=== PATIENT | female | born 1995 | race African-American/Black ===

== ENCOUNTER 2016-06-08 12:21 | Emergency (ER) | payer SELFPAY ==
[2016-06-08 12:26] VITALS: BP 115/76
--- NOTE | 2016-06-08 12:47 | ER Document Report ---
ED Medical Screen (RME) - General Stated Complaint: LEG PAIN AND SWELLING Time seen by provider: 12:45 Mode of Arrival: Ambulatory Information source: Patient Notes: 20-year-old female complaining of intermittent right distal lateral thigh rash to get red hot swollen for for 6 months. I have greeted and performed a rapid initial assessment of this patient. A comprehensive ED assessment, evaluation of the patient, analysis of test results , and completion of the medical decision making process will be conducted by additional ED providers. TRAVEL OUTSIDE OF THE [place] IN LAST 30 DAYS: No - Related Data Allergies/Adverse Reactions: Coconut * [Coconut] Allergy (Verified 06/08/16 12:44) No Known Drug Allergies Allergy (Verified 06/08/16 12:44) Past Medical History Psychiatric Medical History: Reports: Hx Anxiety - Immunizations Immunizations up to date: Yes Hx Diphtheria, Pertussis, Tetanus Vaccination: Yes Physical Exam - Vital signs Vitals: Temp Pulse Resp BP Pulse Ox 97.9 F 74 14 115/76 100 06/08/16 12:25 06/08/16 12:25 06/08/16 12:25 06/08/16 12:25 06/08/16 12:25 Course - Vital Signs Vital signs: Temp Pulse Resp BP Pulse Ox 97.9 F 74 14 115/76 100 06/08/16 12:25 06/08/16 12:25 06/08/16 12:25 06/08/16 12:25 06/08/16 12:25
--- NOTE | 2016-06-08 14:14 | ER Document Report ---
ED General - General Chief Complaint: Rash Stated Complaint: LEG PAIN AND SWELLING Time seen by provider: 14:09 Mode of Arrival: Ambulatory Information source: Patient Notes: 20-year-old female who reports one-week history of pain redness and swelling the lateral right thigh. Patient says she first had this presentation in this area about 7 months ago and it lasted for about 2 weeks. She scratched it and had some serous bloody or purulent drainage in it resolved and then recurred about 2 months later. She reports this is the fourth episode she's had all of which presented similarly. She does not think she's been bitten by anything. She denies any's foods soaps or shampoos detergents. She denies any injury to the area. She has no similar rashes elsewhere. She denies any IV drug use says she's not been injecting her skin in the area. He reports recently having had the flu but has otherwise been in normal state of health recently. Physical Exam: General: Alert, appears well. HEENT: Normocephalic. Atraumatic. PERRLA. Extraocular movements intact. Oropharynx clear. Neck: Supple. Non-tender. Respiratory: No respiratory distress. Clear and equal breath sounds bilaterally. Cardiovascular: Regular rate and rhythm. Abdominal: Normal Inspection. Soft, non-tender. No distension. Normal Bowel Sounds. Back: Non-tender. No deformity or step off. Extremities: Moves all four extremities. Upper extremities: Normal inspection. Non-tender. Normal color. Normal ROM. Normal temperature. Lower extremities: Normal inspection. Non-tender. No edema. Normal color. Normal ROM. Normal temperature. Neurological: Cranial nerves II-XII grossly intact bilaterally. Strength 5/5 throughout. Sensation intact to light touch. Normal cognition. AAOx4. Normal speech. Psychological: Normal affect. Normal Mood. Skin: Warm. Dry. Normal color. Patient has an irregular 2 x 4 cm area of darkish discoloration to the lower third of the right thigh laterally. The posterior portion of this is mildly indurated and tender to palpation with some superficial excoriations. There is no bleeding or purulence crepitance fluctuance or discharge. I do not palpate any deeper mass. She has no Homans sign bilaterally. TRAVEL OUTSIDE OF THE [place] IN LAST 30 DAYS: No - Related Data Allergies/Adverse Reactions: Coconut * [Coconut] Allergy (Verified 06/08/16 12:44) No Known Drug Allergies Allergy (Verified 06/08/16 12:44) Past Medical History - General Information source: Patient - Social History Smoking Status: Never Smoker Chew tobacco use (# tins/day): No Family History: DM, Hypertension Patient has suicidal ideation: No Patient has homicidal ideation: No - Past Medical History Cardiac Medical History: Reports: None Renal/ Medical History: Denies: Hx Peritoneal Dialysis Psychiatric Medical History: Reports: Hx Anxiety - Immunizations Immunizations up to date: Yes Hx Diphtheria, Pertussis, Tetanus Vaccination: Yes Review of Systems - Review of Systems Constitutional: denies: Chills, Fever EENT: denies: Ear pain, Throat pain Cardiovascular: denies: Chest pain Respiratory: denies: Cough, Short of breath Gastrointestinal: denies: Abdominal pain, Nausea, Vomiting Genitourinary: denies: Burning, Dysuria Female Genitourinary: denies: Musculoskeletal: denies: Back pain Skin: See HPI Hematologic/Lymphatic: denies: Swollen glands Neurological/Psychological: denies: Weakness, Numbness Physical Exam - Vital signs Vitals: Temp Pulse Resp BP Pulse Ox 97.9 F 74 14 115/76 100 06/08/16 12:25 06/08/16 12:25 06/08/16 12:25 06/08/16 12:25 06/08/16 12:25 Course - Re-evaluation Re-evalutation: 06/08/16 14:12 Exam is most consistent with a recurrent cellulitis. Mood and place her on Keflex and Bactrim for 10 days and with outpatient follow-up with primary care - Vital Signs Vital signs: Temp Pulse Resp BP Pulse Ox 97.9 F 74 14 115/76 100 06/08/16 12:25 06/08/16 12:25 06/08/16 12:25 06/08/16 12:25 06/08/16 12:25 Discharge - Discharge Clinical Impression: Cellulitis Qualifiers: Site of cellulitis: extremity Site of cellulitis of extremity: lower extremity Laterality: right Qualified Code(s): L03.115 - Cellulitis of right lower limb Condition: Stable Disposition: HOME, SELF-CARE Additional Instructions: Cellulitis You have an infection of your skin and underlying soft tissues called cellulitis. This is due to bacteria, which can enter through any break in the skin, or even through an irritated hair follicle. Untreated, cellulitis will usually worsen. Antibiotics are required. Usually, warm packs or warm soaks, and elevation of the infected area are recommended. You should start getting better within 24 to 36 hours. Most infections respond quickly to the right medication. Follow-up care is important, however, to check for abscess (boil) formation, unsuspected foreign body, or resistant infection. If you develop fever, chills, or if the area of infection is becoming rapidly more swollen or painful, call the doctor at once. Prescriptions: Cephalexin Monohydrate [Keflex 500 mg Capsule] 500 mg PO QID #40 capsule Sulfamethoxazole/Trimethoprim [Bactrim Ds Tablet] 1 each PO BID #20 tablet Referrals: PEYMAN ALLEN MD [[facility]] - Follow up as needed
== END 2016-06-08 14:25 | disposition home or self-care (01) ==
LOC: ER 12:21
DX: L03.115 Cellulitis of right lower limb (principal); R21 Rash and other nonspecific skin eruption; M79.604 Pain in right leg; M79.89 Other specified soft tissue disorders
CPT/HCPCS: 99282

== ENCOUNTER 2016-12-13 22:40 | Emergency (ER) | payer SELFPAY ==
[2016-12-13 23:32] LABS: ABSOLUTE EOSINOPHILS # (AUTO) 0.1 10^3/uL (0.0-0.6); ABSOLUTE LYMPHOCYTES (AUTO) 1.8 10^3/uL (0.5-4.7); ABSOLUTE MONOCYTES (AUTO) 0.3 10^3/uL (0.1-1.4); ABSOLUTE NEUT (AUTO) 3.5 10^3/uL (1.7-8.2); BASOPHILS % (AUTO) 0.3 % (0-2); HEMATOCRIT 40.6 % (36.0-47.0); HEMOGLOBIN 13.8 g/dL (12.0-15.5); HGB HCT DIFFERENCE 0.8; LYMPHOCYTES % (AUTO) 31.9 % (13-45); MEAN CORPUSCULAR HEMOGLOBIN 30.9 pg (27.0-33.4); MEAN CORPUSCULAR VOLUME 91 fl (80-97); MONOCYTES % (AUTO) 5.7 % (3-13); RED BLOOD COUNT 4.47 10^6/uL (3.72-5.28); RED CELL DISTRIBUTION WIDTH 13.3 % (11.5-14.0); SEGMENTED NEUTROPHILS % (AUTO) 61.1 % (42-78); WHITE BLOOD COUNT 5.8 10^3/uL (4.0-10.5)
[2016-12-13 23:33] VITALS: BP 108/70
[2016-12-13 23:39] LABS: AMORPHOUS SEDIMENT,URINE TRACE /HPF; APPEARANCE,URINE CLOUDY; BILIRUBIN,URINE NEGATIVE (NEGATIVE); GLUCOSE, URINE NEGATIVE (NEGATIVE); KETONES,URINE TRACE mg/dL (NEGATIVE); LEUKOCYTE ESTERASE,URINE NEGATIVE (NEGATIVE); NITRITE,URINE NEGATIVE (NEGATIVE); PROTEIN,URINE NEGATIVE (NEGATIVE); URINE SPECIFIC GRAVITY 1.014; UROBILINOGEN,URINE NEGATIVE mg/dL (<2.0)
[2016-12-13 23:45] LABS: ALANINE AMINOTRANSFERASE 29 U/L (9-52); ALBUMIN 4.6 g/dL (3.5-5.0); ALKALINE PHOSPHATASE 60 U/L (38-126); ANION GAP 11 (5-19); ASPARTATE AMINO TRANSFERASE 26 U/L (14-36); BILIRUBIN,DIRECT 0.5 mg/dL (0.0-0.4); BLOOD UREA NITROGEN 16 mg/dL (7-20); CALCIUM 10.2 mg/dL (8.4-10.2); CARBON DIOXIDE 24 mmol/L (22-30); CHLORIDE 104 mmol/L (98-107); CREATININE RESULT 0.81 mg/dL (0.52-1.25); GLUCOSE 100 mg/dL (75-110); LIPASE 104.7 U/L (23-300); POTASSIUM 3.7 mmol/L (3.6-5.0); TOTAL PROTEIN 7.9 g/dL (6.3-8.2)
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
[2016-12-14] MEDS ORDERED: ONDANSETRON ODT 4 MG TAB (6 TAB/DSPK) PO PRN (02:10)
--- NOTE | 2016-12-14 02:32 | RADIOLOGY REPORT (SQ) ---
EXAM DESCRIPTION: KUB/ABDOMEN (SINGLE VIEW) COMPLETED DATE/TIME: 12/14/2016 1:42 am REASON FOR STUDY: abd pain COMPARISON: 6.7.16 NUMBER OF VIEWS: One view. TECHNIQUE: Supine radiographic image of the abdomen acquired. LIMITATIONS: None. FINDINGS: BOWEL GAS PATTERN: Normal bowel gas pattern. No dilated loops. CALCIFICATIONS: No suspicious calcifications. SOFT TISSUES: No gross mass or suggestion of organomegaly. HARDWARE: None in the abdomen. BONES: No acute fracture. No worrisome bone lesions. L5 transitional vertebral body. OTHER: No other significant finding. IMPRESSION: NO RADIOGRAPHIC EVIDENCE FOR ACUTE ABDOMINAL DISEASE. TECHNICAL DOCUMENTATION: JOB ID: [id number] [employer]- All Rights Reserved
== END 2016-12-14 02:17 | disposition home or self-care (01) ==
LOC: ER 22:40
DX: R11.2 Nausea with vomiting, unspecified (principal); R10.30 Lower abdominal pain, unspecified; R10.9 Unspecified abdominal pain; Z3A.01 Less than 8 weeks gestation of pregnancy
CPT/HCPCS: 36415; 74000; 80053; 81001; 83690; 84703; 85025; 99284

== ENCOUNTER 2016-12-18 05:33 | Emergency (ER) | payer SELFPAY ==
[2016-12-18] MEDS ORDERED: LIDOCAINE 1% INJ-PF (10 MG/ML) 30 ML SDV INJ ONE (06:53)
[2016-12-18] MEDS ORDERED: LIDOCAINE 1% INJ-PF (10 MG/ML) 30 ML SDV ONE (06:55)
[2016-12-18] MEDS ORDERED: TETANUS/DIPHTHERIA TOX-ADULT 0.5 ML SYR (>=7YO) IM ONE (07:02)
--- NOTE | 2016-12-18 07:27 | RADIOLOGY REPORT (SQ) ---
EXAM DESCRIPTION: FOREARM RIGHT COMPLETED DATE/TIME: 12/18/2016 7:10 am REASON FOR STUDY: laceration COMPARISON: None. NUMBER OF VIEWS: Two views. TECHNIQUE: Two radiographic images acquired of the right forearm, including elbow and wrist in at le ast one projection. LIMITATIONS: None. FINDINGS: MINERALIZATION: Normal. BONES: No acute fracture. No worrisome bone lesions. SOFT TISSUES: No obvious swelling or foreign body. Known laceration at anterior right mid forearm. 0.3 cm developmental soft tissue calcification at the distal right forearm. OTHER: No other significant finding. IMPRESSION: Soft tissue injury. Otherwise, unremarkable. TECHNICAL DOCUMENTATION: JOB ID: [id number] [employer]- All Rights Reserved
[2016-12-18] MEDS ORDERED: HYDROCODONE/ACETAMINOPHEN 5-325 MG TABLET PO ONE (08:04)
[2016-12-18] MEDS ORDERED: IBUPROFEN 600 MG TABLET PO ONE (08:24)
[2016-12-18] MEDS ORDERED: DIPH/PERTUSS(ACELL)/TETANUS VAC/PF 0.5 ML SYR (>=10YO) IM ONE (08:26)
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
[2016-12-18 09:08] VITALS: BP 115/99
== END 2016-12-18 09:08 | disposition home or self-care (01) ==
LOC: ER 05:33
PROC: 0HQDXZZ Repair Right Lower Arm Skin, External Approach (ICD-10-PCS; principal; 2016-12-18)
DX: S51.811A Laceration without foreign body of right forearm, initial encounter (principal); W25.XXXA Contact with sharp glass, initial encounter; Z23 Encounter for immunization
CPT/HCPCS: 99283; 90471; 73090; 90715; 12004; J3490

== ENCOUNTER 2016-12-23 14:55 | Emergency (ER) | payer SELFPAY ==
[2016-12-23 15:30] VITALS: BP 103/73
== END 2016-12-23 18:00 | disposition left against medical advice (07) ==
LOC: ER 14:55
DX: Z53.21 Procedure and treatment not carried out due to patient leaving prior to being seen by health care provider (principal)

== ENCOUNTER 2017-03-10 23:59 | Emergency (ER) | payer SELFPAY ==
[2017-03-11 00:13] VITALS: BP 120/79
[2017-03-11] MEDS ORDERED: CEPHALEXIN 500 MG CAPSULE PO ONE (00:28)
[2017-03-11] MEDS ORDERED: HYDROCODONE/ACETAMINOPHEN 5-325 MG 6 TAB/DSPK PO PRN (00:28)
--- NOTE | 2017-03-11 00:31 | ER Document Report ---
HPI - HPI Patient complains to provider of: skin rash Onset: Other - 3 days Onset/Duration: Worse Quality of pain: Sharp Pain Level: 4 Context: Patient complains of painful skin lesions to right axilla for the past 3 days. Patient denies any fever. Associated Symptoms: Other - Skin lesions to right axilla. denies: Fever Exacerbated by: Movement Relieved by: Denies Similar symptoms previously: No Recently seen / treated by doctor: No - ROS ROS below otherwise negative: Yes Systems Reviewed and Negative: Yes All other systems reviewed and negative - CONSTITUTIONAL Constitutional: DENIES: Fever, Chills - GASTROINTESTINAL Gastrointestinal: DENIES: Nausea - REPRODUCTIVE Reproductive: DENIES: : - MUSCULOSKELETAL Musculoskeletal: REPORTS: Extremity pain - DERM Skin Problems: Rash Past Medical History - General Information source: Patient - Social History Smoking Status: Current Every Day Smoker Frequency of alcohol use: None Drug Abuse: Marijuana Occupation: [employer] Lives with: Family Family History: DM, Hypertension Renal/ Medical History: Denies: Hx Peritoneal Dialysis Psychiatric Medical History: Reports: Hx Anxiety Surgical Hx: Negative - Immunizations Immunizations up to date: Yes Hx Diphtheria, Pertussis, Tetanus Vaccination: Yes Vertical Provider Document - CONSTITUTIONAL Agree With Documented VS: Yes Exam Limitations: No Limitations General Appearance: WD/WN, No Apparent Distress - INFECTION CONTROL TRAVEL OUTSIDE OF THE [place] IN LAST 30 DAYS: No - HEENT HEENT: Atraumatic, Normocephalic - NECK Neck: Normal Inspection - RESPIRATORY Respiratory: Breath Sounds Normal, No Respiratory Distress O2 Sat by Pulse Oximetry: 98 - CARDIOVASCULAR Cardiovascular: Regular Rhythm, No Murmur, Bradycardia - BACK Back: Normal Inspection - MUSCULOSKELETAL/EXTREMETIES Musculoskeletal/Extremeties: MAEW - NEURO Level of Consciousness: Awake, Alert, Appropriate Motor/Sensory: No Motor Deficit - DERM Integumentary: Warm, Dry, Rash - Folliculitis to right axilla, no drainable abscess Course - Vital Signs Vital signs: Temp Pulse Resp BP Pulse Ox 98.7 F 44 L 18 120/79 98 03/11/17 00:09 03/11/17 00:09 03/11/17 00:09 03/11/17 00:09 03/11/17 00:09 Discharge - Discharge Clinical Impression: Folliculitis Condition: Stable Disposition: HOME, SELF-CARE Instructions: Cephalexin ([facility]), Folliculitis ([facility]) Additional Instructions: Return immediately for any new or worsening symptoms Followup with your primary care provider, call tomorrow to make a followup appointment Prescriptions: Cephalexin Monohydrate [Keflex 500 mg Capsule] 500 mg PO Q6H 5 Days capsule Naproxen [Naprosyn 250 Nmg Tablet] 1 tab PO BID #14 tablet Forms: Return to Work Referrals: [facility] [Provider Group] - Follow up as needed
== END 2017-03-11 00:30 | disposition home or self-care (01) ==
LOC: ER 23:59
DX: L73.9 Follicular disorder, unspecified (principal); R21 Rash and other nonspecific skin eruption; F17.200 Nicotine dependence, unspecified, uncomplicated
CPT/HCPCS: 99283

== ENCOUNTER 2017-04-02 02:49 | Emergency (ER) | payer SELFPAY ==
[2017-04-02 02:58] VITALS: BP 111/63
--- NOTE | 2017-04-02 03:16 | ER Document Report ---
ED General - General Chief Complaint: Cold Symptoms Stated Complaint: NECK,BACK PAIN, COUGH Time Seen by Provider: 04/02/17 03:14 Notes: The patient is a 21-year-old female who presents with 1 week of body aches, dry cough and nasal congestion. She is now having left lateral neck pain when she coughs. She has tried NyQuil, Motrin and Tylenol without much relief of her symptoms. She is requesting [place] to help her sleep. Patient denies fevers, nausea, vomiting, abdominal pain, headache, neck stiffness, rash or recent travel. TRAVEL OUTSIDE OF THE [place] IN LAST 30 DAYS: No - Related Data Allergies/Adverse Reactions: Coconut * [Coconut] Allergy (Verified 12/18/16 05:44) No Known Drug Allergies Allergy (Verified 12/18/16 05:44) Past Medical History - General Information source: Patient - Social History Smoking Status: Former Smoker Family History: DM, Hypertension Renal/ Medical History: Denies: Hx Peritoneal Dialysis Psychiatric Medical History: Reports: Hx Anxiety - Immunizations Immunizations up to date: Yes Hx Diphtheria, Pertussis, Tetanus Vaccination: Yes Review of Systems - Review of Systems Notes: REVIEW OF SYSTEMS: CONSTITUTIONAL: -fevers, +chills EENT: -eye pain, -difficulty swallowing, -nasal congestion CARDIOVASCULAR:-chest pain, -syncope. RESPIRATORY: +cough, -SOB GASTROINTESTINAL: -abdominal pain, -nausea, -vomiting, -diarrhea GENITOURINARY: -dysuria, -hematuria MUSCULOSKELETAL: -back pain, +neck pain SKIN: -rash or skin lesions. HEMATOLOGIC: -easy bruising or bleeding. LYMPHATIC: -swollen, enlarged glands. NEUROLOGICAL: -altered mental status or loss of consciousness, -headache, - neurologic symptoms PSYCHIATRIC: -anxiety, -depression. ALL OTHER SYSTEMS REVIEWED AND NEGATIVE. Physical Exam - Vital signs Vitals: Temp Pulse Resp BP Pulse Ox 97.8 F 78 18 111/63 99 04/02/17 02:57 04/02/17 02:57 04/02/17 02:57 04/02/17 02:57 04/02/17 02:57 - Notes Notes: PHYSICAL EXAMINATION: GENERAL: Well-appearing, well-nourished and in no acute distress. HEAD: Atraumatic, normocephalic. EYES: Pupils equal round and reactive to light, extraocular movements intact, sclera anicteric, conjunctiva are normal. ENT: nares patent, oropharynx clear without exudates. Moist mucous membranes. NECK: Normal range of motion, supple without lymphadenopathy, mild tenderness over left lateral neck LUNGS: Breath sounds clear to auscultation bilaterally and equal. No wheezes rales or rhonchi. HEART: Regular rate and rhythm without murmurs ABDOMEN: Soft, nontender, normoactive bowel sounds. No guarding, no rebound. No masses appreciated. EXTREMITIES: Normal range of motion, no pitting or edema. No cyanosis. NEUROLOGICAL: Cranial nerves grossly intact. Normal speech, normal gait. Normal sensory and motor exams. PSYCH: Normal mood, normal affect. SKIN: Warm, Dry, normal turgor, no rashes or lesions noted. Course - Re-evaluation Re-evalutation: Patient appears well. She is in no respiratory distress and satting 100% on room air. CXR performed due to new brown sputum, but no focal infiltrates seen. Symptoms consistent with a viral illness and instructed her to continue the symptomatic treatment. Will not test for flu due to 1 week of symptoms and no change in management. Given strict return precautions and she understands. - Vital Signs Vital signs: Temp Pulse Resp BP Pulse Ox 97.8 F 78 18 111/63 99 04/02/17 02:57 04/02/17 02:57 04/02/17 02:57 04/02/17 02:57 04/02/17 02:57 - Diagnostic Test Radiology reviewed: Image reviewed, Reports reviewed Radiology results interpreted by me: CXR: NAD Discharge - Discharge Clinical Impression: Viral respiratory illness Condition: Stable Additional Instructions: UPPER RESPIRATORY ILLNESS: You have a viral infection of the respiratory passages -- a "cold." This common infection causes nasal congestion, drainage, and often sore throat and cough. It is highly contagious. The disease usually lasts about 10 to 14 days. There is no "cure" for the viral infection -- it must run its course. If there is a complication, such as bacterial infection in the nose, sinuses, middle ear, or bronchial tubes, antibiotics may be required. The antibiotics won't affect the virus. Drink plenty of fluids. A humidifier may help. An expectorant medication or decongestant may make you more comfortable. Use acetaminophen or ibuprofen for fever or aches. See the doctor if fever persists over two days, if there is any significant worsening of your symptoms, or if you simply fail to improve as expected. STEROID MEDICATION: You have been given an injection of or oral medicine of the cortisone/ steroid class. This medication is used to control inflammation or allergy. Jose t is usually only given for a short period of time, until the acute process subsides. There are usually no side effects from short-term use of cortisone-like medications. Some persons feel an increased sense of well-being and are not sleepy at bedtime. Long-term use of cortisone medications is best avoided, unless required for a severe condition. If your condition does not remit, or relapses after the course of corticosteroid medication, you should consult your physician. USE OF ACETAMINOPHEN (Tylenol): Acetaminophen may be taken for pain relief or fever control. It's much safer than aspirin, offering a wider range of "safe" dosages. It is safe during . Some brand names are Tylenol, Panadol, Datril, Anacin 3, Tempra, and Liquiprin. Acetaminophen can be repeated every four hours. The following are maximum recommended dosages: >89 pounds or adults 650 mg to 900 mg Acetaminophen can be repeated every four hours. Maximum dose not to exceed 4000 mg a day. SMOKING: If you smoke, you should stop smoking. The tar and chemicals in cigarette smoke are harmful. Smoking has been shown to cause: emphysema chronic bronchitis lung cancer mouth and throat cancer stomach and pancreas cancer premature aging defects In addition, smoking increases ear and lung infections in children of smokers. FOLLOW-UP CARE: If you have been referred to a physician for follow-up care, call the physician s office for an appointment as you were instructed or within the next two days. If you experience worsening or a significant change in your symptoms, notify the physician immediately or return to the Emergency Department at any time for re-evaluation.
[2017-04-02] MEDS ORDERED: BENZONATATE 100 MG CAPSULE PO ONE (03:23)
[2017-04-02] MEDS ORDERED: DEXAMETHASONE 4 MG TABLET PO ONE (03:28)
--- NOTE | 2017-04-02 03:56 | RADIOLOGY REPORT (SQ) ---
EXAM DESCRIPTION: CHEST PA/LAT CLINICAL HISTORY: cough COMPARISON: None. FINDINGS: Frontal and lateral views of the chest. The cardiomediastinal silhouette has normal size and contour. No consolidation, pneumothorax, or pleural effusion. No displaced rib fractures identified. Upper abdominal soft tissues are unremarkable. IMPRESSION: 1. No acute pulmonary process identified.
== END 2017-04-02 03:49 | disposition home or self-care (01) ==
LOC: ER 02:49
DX: J06.9 Acute upper respiratory infection, unspecified (principal); B97.89 Other viral agents as the cause of diseases classified elsewhere; R05 Cough; R09.81 Nasal congestion; M54.2 Cervicalgia; R68.83 Chills (without fever); Z91.018 Allergy to other foods; Z87.891 Personal history of nicotine dependence
CPT/HCPCS: 71020; 99283

== ENCOUNTER 2017-04-13 16:46 | Emergency (ER) | payer MEDICAID ==
[2017-04-13 17:34] LABS: APPEARANCE,URINE SLIGHTLY-CLOUDY; BILIRUBIN,URINE NEGATIVE (NEGATIVE); COLOR,URINE YELLOW; GLUCOSE, URINE NEGATIVE (NEGATIVE); KETONES,URINE NEGATIVE (NEGATIVE); LEUKOCYTE ESTERASE,URINE TRACE (NEGATIVE); NITRITE,URINE NEGATIVE (NEGATIVE); PROTEIN,URINE NEGATIVE (NEGATIVE); URINE SPECIFIC GRAVITY 1.021; UROBILINOGEN,URINE NEGATIVE mg/dL (<2.0)
[2017-04-13] MEDS ORDERED: AZITHROMYCIN 250 MG TABLET PO ONE (18:18)
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
[2017-04-13 18:48] VITALS: BP 119/73
[2017-04-13 19:12] LABS: CHLAM PCR DETECTED (NOT DETECT); GON PCR NOT DETECTED (NOT DETECT)
== END 2017-04-13 18:49 | disposition home or self-care (01) ==
LOC: ER 16:46
DX: Z20.2 Contact with and (suspected) exposure to infections with a predominantly sexual mode of transmission (principal); F17.200 Nicotine dependence, unspecified, uncomplicated
CPT/HCPCS: 99283; 81001; 87491; 87591; Q0144

== ENCOUNTER 2017-04-17 14:11 | Emergency (ER) | payer SELFPAY ==
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
[2017-04-17 16:46] LABS: APPEARANCE,URINE SLIGHTLY-CLOUDY; BILIRUBIN,URINE NEGATIVE (NEGATIVE); COLOR,URINE YELLOW; GLUCOSE, URINE NEGATIVE (NEGATIVE); KETONES,URINE 20 mg/dL (NEGATIVE); LEUKOCYTE ESTERASE,URINE NEGATIVE (NEGATIVE); NITRITE,URINE NEGATIVE (NEGATIVE); PROTEIN,URINE NEGATIVE (NEGATIVE); URINE SPECIFIC GRAVITY 1.028
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
[2017-04-17] MEDS ORDERED: ACETAMINOPHEN 325 MG TABLET PO ONE (17:33)
[2017-04-17 18:27] VITALS: BP 110/70
== END 2017-04-17 18:25 | disposition home or self-care (01) ==
LOC: ER 14:11
DX: R07.9 Chest pain, unspecified (principal); M79.652 Pain in left thigh; Y04.2XXA Assault by strike against or bumped into by another person, initial encounter; Y92.009 Unspecified place in unspecified non-institutional (private) residence as the place of occurrence of the external cause; I10 Essential (primary) hypertension
CPT/HCPCS: 81001; 81025; 99284

== ENCOUNTER 2017-10-20 23:41 | Emergency (ER) | payer SELFPAY ==
--- NOTE | 2017-10-21 03:10 | RADIOLOGY REPORT (SQ) ---
EXAM DESCRIPTION: XR HAND 3 VIEWS BILATERAL COMPLETED DATE/TME: 10/21/2017 00:00 CLINICAL HISTORY: 22 years, Female, Pain COMPARISON: None. NUMBER OF VIEWS: Three TECHNIQUE: Three views of the bilateral hands LIMITATIONS: None. FINDINGS: There is no acute fracture or dislocation. The joint spaces are preserved. There is no radiopaque foreign body. The carpal bones are unremarkable. IMPRESSION: No acute fracture or dislocation 2010 [employer]- All Rights Reserved
--- NOTE | 2017-10-21 03:10 | RADIOLOGY REPORT (SQ) ---
Bilateral elbows two view on 10/21/2017 at 2:44 AM CLINICAL INDICATION: Bilateral elbow pain COMPARISON: None FINDINGS: Right elbow: There are no fractures. Visualized joints are well aligned. No joint effusion is noted to suggest an occult fracture. No bony abnormality is noted. Left elbow: There are no fractures. Visualized joints are well aligned. No joint effusion is noted to suggest an occult fracture. No bony abnormality is noted. IMPRESSION: No acute abnormality in either elbow.
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
[2017-10-21 03:47] VITALS: BP 105/65
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
== END 2017-10-21 03:53 | disposition home or self-care (01) ==
LOC: ER 23:41
DX: M79.641 Pain in right hand (principal); M79.642 Pain in left hand; M25.522 Pain in left elbow; M79.646 Pain in unspecified finger(s); I10 Essential (primary) hypertension
CPT/HCPCS: 99283

== ENCOUNTER 2017-11-10 16:37 | Emergency (ER) | payer SELFPAY ==
[2017-11-10] MEDS ORDERED: ACETAMINOPHEN 325 MG TABLET PO ONE (16:40)
[2017-11-10 17:11] VITALS: BP 117/90
[2017-11-10] MEDS ORDERED: IBUPROFEN 600 MG TABLET PO ONE (18:23)
--- NOTE | 2017-11-10 18:24 | ER Document Report ---
ED General - General Chief Complaint: Arm Injury Stated Complaint: RIGHT ARM PAIN Time Seen by Provider: 11/10/17 18:08 Mode of Arrival: Ambulatory Information source: Patient TRAVEL OUTSIDE OF THE U.[place] IN LAST 30 DAYS: No - HPI Notes: Patient is a 22-year-old female presents emergency department with report that she was outside in slipped and fell landing on the right arm, but questions if she struck her right arm and reports pain to the right wrist and forearm since the fall. No head injury or neck pain or back pain or numbness or paresthesia or other injury. - Related Data Allergies/Adverse Reactions: Coconut * [Coconut] Allergy (Verified 11/10/17 16:38) No Known Drug Allergies Allergy (Verified 11/10/17 16:38) Past Medical History - General Information source: Patient - Social History Smoking Status: Never Smoker Frequency of alcohol use: None Lives with: Family Family History: DM, Hypertension Patient has suicidal ideation: No Patient has homicidal ideation: No - Past Medical History Cardiac Medical History: Reports: Hx Hypertension Renal/ Medical History: Denies: Hx Peritoneal Dialysis Psychiatric Medical History: Reports: Hx Anxiety - Immunizations Immunizations up to date: Yes Hx Diphtheria, Pertussis, Tetanus Vaccination: Yes Review of Systems - Review of Systems -: Yes All other systems reviewed and negative Physical Exam - Vital signs Vitals: Temp Pulse Resp BP Pulse Ox 98.2 F 70 18 117/90 H 99 11/10/17 17:09 11/10/17 17:09 11/10/17 17:09 11/10/17 17:09 11/10/17 17:09 - Notes Notes: PHYSICAL EXAMINATION: GENERAL: Well-appearing, well-nourished and in no acute distress. HEAD: Atraumatic, normocephalic. EYES: Pupils equal round and reactive to light, extraocular movements intact, conjunctiva are normal. ENT: Nares patent, oropharynx clear without exudates. Moist mucous membranes. NECK: Normal range of motion, supple without lymphadenopathy LUNGS: Breath sounds clear to auscultation bilaterally and equal. No wheezes rales or rhonchi. HEART: Regular rate and rhythm without murmurs ABDOMEN: Soft, nontender, nondistended abdomen. No guarding, no rebound. No masses appreciated. Female : deferred Musculoskeletal: no pitting or edema. No cyanosis. Pain over the right wrist more palmar aspect with contusion and pain that extends to the right forearm. No evidence for compartment syndrome. Distally, the patient is neurovascularly intact with good distal sensation and capillary refill and pulses. No proximal erythema or adenopathy. No specific scaphoid pain. NEUROLOGICAL: Cranial nerves grossly intact. Normal speech, normal gait. Normal sensory, motor exams PSYCH: Normal mood, normal affect. SKIN: Warm, Dry, normal turgor, no rashes or lesions noted. Course - Re-evaluation Re-evalutation: 11/10/17 19:23 X-rays were negative. Patient was given a wrist immobilization splint. She will follow-up with orthopedics for continued pain. No obvious evidence for fracture, and some of the pain may be coming from the contusion. No neurovascular compromise. 11/10/17 19:23 - Vital Signs Vital signs: Temp Pulse Resp BP Pulse Ox 98.2 F 70 18 117/90 H 99 11/10/17 17:09 11/10/17 17:09 11/10/17 17:09 11/10/17 17:09 11/10/17 17:09 Discharge - Discharge Clinical Impression: Right wrist sprain Qualifiers: Encounter type: initial encounter Qualified Code(s): S63.501A - Unspecified sprain of right wrist, initial encounter Contusion Qualifiers: Encounter type: initial encounter Contusion area: forearm Laterality: right Qualified Code(s): S50.11XA - Contusion of right forearm, initial encounter Condition: Stable Disposition: HOME, SELF-CARE Instructions: Contusion ([facility]), Wrist Sprain ([facility]) Additional Instructions: Ice and elevate the arm. Follow-up for continued pain after 2 weeks with orthopedics as needed. Used wrist splint and keep immobilized for pain. Prescriptions: Ibuprofen [Ibu] 600 mg PO Q8HP PRN #30 tablet PRN Reason: Referrals: ROSIO PANDEY MD [ACTIVE STAFF] - Follow up as needed
--- NOTE | 2017-11-10 18:56 | RADIOLOGY REPORT (SQ) ---
EXAM DESCRIPTION: FOREARM RIGHT COMPLETED DATE/TIME: 11/10/2017 6:36 pm REASON FOR STUDY: Stated pain COMPARISON: 12/18/2016 NUMBER OF VIEWS: Two views. TECHNIQUE: Two radiographic images acquired of the right forearm, including elbow and wrist in at le ast one projection. LIMITATIONS: None. FINDINGS: MINERALIZATION: Normal. BONES: No acute fracture. No worrisome bone lesions. SOFT TISSUES: No obvious swelling or foreign body. OTHER: No other significant finding. IMPRESSION: NEGATIVE STUDY OF THE RIGHT FOREARM. NO RADIOGRAPHIC EVIDENCE OF ACUTE INJURY. TECHNICAL DOCUMENTATION: JOB ID: [id number] [employer] All Rights Reserved Reading location - IP/workstation name: [email or web address]
--- NOTE | 2017-11-10 18:58 | RADIOLOGY REPORT (SQ) ---
EXAM DESCRIPTION: WRIST RIGHT 3 VIEWS COMPLETED DATE/TIME: 11/10/2017 6:36 pm REASON FOR STUDY: Stated pain COMPARISON: None. NUMBER OF VIEWS: Three views. TECHNIQUE: AP, lateral, and oblique radiographic images acquired of the right wrist. LIMITATIONS: None. FINDINGS: MINERALIZATION: Normal. BONES: No acute fracture or dislocation. No worrisome bone lesions. Normal alignment. SOFT TISSUES: No soft tissue swelling. No foreign body. OTHER: No other significant finding. IMPRESSION: NO RADIOGRAPHIC EVIDENCE OF ACUTE INJURY. TECHNICAL DOCUMENTATION: JOB ID: [id number] [id number] 2010 [employer]- All Rights Reserved Reading location - IP/workstation name: [email or web address]
[2017-11-10] MEDS ORDERED: TRAMADOL HCL 50 MG TABLET PO ONE (19:18)
== END 2017-11-10 19:52 | disposition home or self-care (01) ==
LOC: ER 16:37
DX: S50.11XA Contusion of right forearm, initial encounter (principal); S63.501A Unspecified sprain of right wrist, initial encounter; W01.0XXA Fall on same level from slipping, tripping and stumbling without subsequent striking against object, initial encounter; I10 Essential (primary) hypertension
CPT/HCPCS: 99283; 73090; 73110; L3908

== ENCOUNTER 2017-11-30 20:37 | Emergency (ER) | payer MEDICAID ==
--- NOTE | 2017-11-30 21:41 | ER Document Report ---
HPI - HPI Patient complains to provider of: Nausea, concern about , lower abdominal pain Onset: Other - 2 weeks Onset/Duration: Persistent Quality of pain: Achy, Cramping Pain Level: 2 Context: Patient presents complaining of nausea lower pelvic pain with vaginal discharge for the past 2 weeks. Patient states she did have a positive home test. Patient does complain of some headache as well. Patient denies any vaginal bleeding. Associated Symptoms: Headache, Nausea. denies: Nonproductive cough, Productive cough, Fever, Vomiting Exacerbated by: Denies Relieved by: Denies Similar symptoms previously: No Recently seen / treated by doctor: No - ROS ROS below otherwise negative: Yes Systems Reviewed and Negative: Yes All other systems reviewed and negative - CONSTITUTIONAL Constitutional: DENIES: Fever - EENT EENT: DENIES: Sore Throat - NEURO Neurology: REPORTS: Headache - RESPIRATORY Respiratory: DENIES: Coughing - GASTROINTESTINAL Gastrointestinal: REPORTS: Abdominal Pain, Nausea. DENIES: Patient vomiting - URINARY Urinary: DENIES: Dysuria - REPRODUCTIVE LMP: 10-27-17 Reproductive: REPORTS: :, Abnormal bleeding / discharge - MUSCULOSKELETAL Musculoskeletal: DENIES: Back Pain - DERM Skin Color: Normal Skin Problems: None Past Medical History - General Information source: Patient - Social History Smoking Status: Never Smoker Frequency of alcohol use: None Drug Abuse: None Occupation: None Family History: DM, Hypertension Renal/ Medical History: Denies: Hx Peritoneal Dialysis Psychiatric Medical History: Reports: Hx Anxiety Surgical Hx: Negative - Immunizations Immunizations up to date: Yes Hx Diphtheria, Pertussis, Tetanus Vaccination: Yes Vertical Provider Document - CONSTITUTIONAL Agree With Documented VS: Yes Exam Limitations: No Limitations General Appearance: WD/WN, No Apparent Distress - INFECTION CONTROL TRAVEL OUTSIDE OF THE [place] IN LAST 30 DAYS: No - HEENT HEENT: Atraumatic, Normocephalic - NECK Neck: Normal Inspection, Supple - RESPIRATORY Respiratory: Breath Sounds Normal, No Respiratory Distress - CARDIOVASCULAR Cardiovascular: Regular Rate, Regular Rhythm - GI/ABDOMEN Gastrointestinal: Abdomen Soft, Abdomen Tender - lower pelvic pain, No Organomegaly. negative: Abdominal Guarding - REPRODUCTIVE Female Genitalia: Abnormal Inspection - white vaginal discharge. negative: CMT , Adnexal Pain-Right, Adnexal Pain-Left - BACK Back: Normal Inspection. negative: CVA Tenderness-Right, CVA Tenderness-Left - MUSCULOSKELETAL/EXTREMETIES Musculoskeletal/Extremeties: [place] - NEURO Level of Consciousness: Awake, Alert, Appropriate Motor/Sensory: No Motor Deficit - DERM Integumentary: Warm, Dry, No Rash Course - Re-evaluation Re-evalutation: 12/01/17 01:[address] Iniguez regarding patient's ultrasound report. No additional testing advised at this time. Patient with stable vital signs and no active vaginal bleeding. Patient nontoxic in appearance. Patient encouraged to follow-up with FINANCIAL COUNSELOR for further evaluation. Patient advised of hemorrhage noted on ultrasound. Patient is Rh+, no need for RhoGam at this time. - Vital Signs Vital signs: Temp Pulse Resp BP Pulse Ox 98.3 F 93 20 119/73 100 11/30/17 21:24 11/30/17 21:24 11/30/17 21:24 11/30/17 21:24 11/30/17 21:24 - Laboratory Result Diagrams: 11/30/17 21:50 11/30/17 21:50 Laboratory results interpreted by me: 12/01/17 01:42 Labs- Entire Visit 11/30/17 11/30/17 11/30/17 21:50 21:50 21:50 WBC 6.6 RBC 4.22 Hgb 12.8 Hct 37.7 MCV 89 MCH 30.3 MCHC 33.9 RDW 13.3 Plt Count 222 Seg Neutrophils % 58.8 Lymphocytes % 31.2 Monocytes % 7.2 Eosinophils % 2.4 Basophils % 0.4 Absolute Neutrophils 3.9 Absolute Lymphocytes 2.0 Absolute Monocytes 0.5 Absolute Eosinophils 0.2 Absolute Basophils 0.0 Sodium 140.9 Potassium 3.9 Chloride 105 Carbon Dioxide 24 Anion Gap 12 BUN 10 Creatinine 0.76 Est GFR ( Amer) > 60 Est GFR (Non-Af Amer) > 60 Glucose 97 Calcium 9.9 Beta HCG, Quant Total Beta HCG Urine Color YELLOW Urine Appearance SLIGHTLY-CLOUDY Urine pH 5.0 Ur Specific [place] 1.025 Urine Protein NEGATIVE Urine Glucose (UA) NEGATIVE Urine Ketones TRACE H Urine Blood NEGATIVE Urine Nitrite NEGATIVE Urine Bilirubin NEGATIVE Urine Urobilinogen NEGATIVE Ur Leukocyte Esterase TRACE H Urine WBC (Auto) 3 Urine RBC (Auto) 1 Squamous Epi Cells Auto 9 Urine Mucus (Auto) MANY Urine Ascorbic Acid NEGATIVE Urine HCG, Qual POSITIVE H Epi Cells (Wet Prep) Trichomonas (Wet Prep) Vaginal WBC Vaginal RBC Vaginal Yeast Chlamydia DNA (PCR) N.gonorrhoeae DNA (PCR) Blood Type Rhogam Indicated 11/30/17 11/30/17 11/30/17 21:50 22:40 23:22 WBC RBC Hgb Hct MCV MCH MCHC RDW Plt Count Seg Neutrophils % Lymphocytes % Monocytes % Eosinophils % Basophils % Absolute Neutrophils Absolute Lymphocytes Absolute Monocytes Absolute Eosinophils Absolute Basophils Sodium Potassium Chloride Carbon Dioxide Anion Gap BUN Creatinine Est GFR ( Amer) Est GFR (Non-Af Amer) Glucose Calcium Beta HCG, Quant 90065.00 H Total Beta HCG POSITIVE Urine Color Urine Appearance Urine pH Ur Specific [place] Urine Protein Urine Glucose (UA) Urine Ketones Urine Blood Urine Nitrite Urine Bilirubin Urine Urobilinogen Ur Leukocyte Esterase Urine WBC (Auto) Urine RBC (Auto) Squamous Epi Cells Auto Urine Mucus (Auto) Urine Ascorbic Acid Urine HCG, Qual Epi Cells (Wet Prep) Trichomonas (Wet Prep) Vaginal WBC Vaginal RBC Vaginal Yeast Chlamydia DNA (PCR) NOT DETECTED N.gonorrhoeae DNA (PCR) NOT DETECTED Blood Type A POSITIVE Rhogam Indicated RHOGAM NOT INDICATED 11/30/17 23:22 WBC RBC Hgb Hct MCV MCH MCHC RDW Plt Count Seg Neutrophils % Lymphocytes % Monocytes % Eosinophils % Basophils % Absolute Neutrophils Absolute Lymphocytes Absolute Monocytes Absolute Eosinophils Absolute Basophils Sodium Potassium Chloride Carbon Dioxide Anion Gap BUN Creatinine Est GFR ( Amer) Est GFR (Non-Af Amer) Glucose Calcium Beta HCG, Quant Total Beta HCG Urine Color Urine Appearance Urine pH Ur Specific [place] Urine Protein Urine Glucose (UA) Urine Ketones Urine Blood Urine Nitrite Urine Bilirubin Urine Urobilinogen Ur Leukocyte Esterase Urine WBC (Auto) Urine RBC (Auto) Squamous Epi Cells Auto Urine Mucus (Auto) Urine Ascorbic Acid Urine HCG, Qual Epi Cells (Wet Prep) 3+ EPITHELIALS SEEN Trichomonas (Wet Prep) NO TRICHOMONAS SEEN Vaginal WBC FEW WBCS SEEN Vaginal RBC NO RBCS SEEN Vaginal Yeast NO YEAST SEEN Chlamydia DNA (PCR) N.gonorrhoeae DNA (PCR) Blood Type Rhogam Indicated - Diagnostic Test Radiology reviewed: Reports reviewed Discharge - Discharge Clinical Impression: test positive, perigestational hemorrhage UTI (urinary tract infection) Qualifiers: Urinary tract infection type: site unspecified Hematuria presence: without hematuria Qualified Code(s): N39.0 - Urinary tract infection, site not specified Condition: Stable Disposition: HOME, SELF-CARE Instructions: Urinary Tract Infection ([facility]), Cephalexin ([facility]), ([facility]) , Bleeding During Early ([facility]) Additional Instructions: Return immediately for any new or worsening symptoms Followup with your primary care provider, call tomorrow to make a followup appointment Follow-up with an FINANCIAL COUNSELOR for further evaluation. Call tomorrow for an appointment. Return for any bleeding, increased pain, or any concerning symptoms. Prescriptions: Cephalexin Monohydrate [Keflex 500 mg Capsule] 500 mg PO Q6H 5 Days capsule Forms: Return to School Referrals: [facility] [Provider Group] - Follow up as needed [facility]NO [facility]AL MD] - Follow up tomorrow
[2017-11-30 22:09] LABS: ABSOLUTE EOSINOPHILS # (AUTO) 0.2 10^3/uL (0.0-0.6); ABSOLUTE MONOCYTES (AUTO) 0.5 10^3/uL (0.1-1.4); ABSOLUTE NEUT (AUTO) 3.9 10^3/uL (1.7-8.2); BASOPHILS % (AUTO) 0.4 % (0-2); EOSINOPHILS % (AUTO) 2.4 % (0-6); HEMATOCRIT 37.7 % (36.0-47.0); HEMOGLOBIN 12.8 g/dL (12.0-15.5); LYMPHOCYTES % (AUTO) 31.2 % (13-45); MEAN CORPUSCULAR HEMOGLOBIN 30.3 pg (27.0-33.4); MEAN CORPUSCULAR HGB CONC 33.9 g/dL (32.0-36.0); MEAN CORPUSCULAR VOLUME 89 fl (80-97); MONOCYTES % (AUTO) 7.2 % (3-13); PLATELET COUNT 222 10^3/uL (150-450); RED BLOOD COUNT 4.22 10^6/uL (3.72-5.28); RED CELL DISTRIBUTION WIDTH 13.3 % (11.5-14.0); SEGMENTED NEUTROPHILS % (AUTO) 58.8 % (42-78); TOTAL CELLS COUNTED % (AUTO) 100 %; WHITE BLOOD COUNT 6.6 10^3/uL (4.0-10.5)
[2017-11-30 22:13] LABS: APPEARANCE,URINE SLIGHTLY-CLOUDY; BILIRUBIN,URINE NEGATIVE (NEGATIVE); COLOR,URINE YELLOW; GLUCOSE, URINE NEGATIVE (NEGATIVE); KETONES,URINE TRACE mg/dL (NEGATIVE); LEUKOCYTE ESTERASE,URINE TRACE (NEGATIVE); NITRITE,URINE NEGATIVE (NEGATIVE); PROTEIN,URINE NEGATIVE (NEGATIVE); URINE SPECIFIC GRAVITY 1.025; UROBILINOGEN,URINE NEGATIVE mg/dL (<2.0)
[2017-11-30 22:28] LABS: ANION GAP 12 (5-19); BLOOD UREA NITROGEN 10 mg/dL (7-20); CALCIUM 9.9 mg/dL (8.4-10.2); CARBON DIOXIDE 24 mmol/L (22-30); CHLORIDE 105 mmol/L (98-107); GLUCOSE 97 mg/dL (75-110); POTASSIUM 3.9 mmol/L (3.6-5.0); SODIUM 140.9 mmol/L (137-145)
[2017-11-30 23:32] LABS: EPITHELIALS (WET MOUNT) 3+ EPITHELIALS SEEN; RBCS (WET MOUNT) NO RBCS SEEN; T.VAGINALIS (WET MOUNT) NO TRICHOMONAS SEEN; WBCS (WET MOUNT) FEW WBCS SEEN; YEAST (WET MOUNT) NO YEAST SEEN
[2017-12-01 01:04] LABS: CHLAM PCR NOT DETECTED (NOT DETECT); GON PCR NOT DETECTED (NOT DETECT)
--- NOTE | 2017-12-01 01:31 | RADIOLOGY REPORT (SQ) ---
EXAM DESCRIPTION: US TRANSVAGINAL COMPLETED DATE/TME: 11/30/2017 22:32 CLINICAL HISTORY: 22 years Female, pelvic pain Comparison: None. TECHNIQUE: Transvaginal. LIMITATIONS: None. FINDINGS: Living intrauterine fetus measures 5w 6d with ANDREW of 07/28/2018. Cardiac activity is 99-bpm. [place]-rump length is 0.25-cm. 4.3 x 2.1 x 0.6-cm perigestational hemorrhage. 4.4-cm right ovary, 3.5-cm left ovary, 3.3-cm cervical length, and no free fluid. IMPRESSION: Living 1st trimester intrauterine gestation. 4.3-cm perigestational hemorrhage.
[2017-12-01] MEDS ORDERED: CEPHALEXIN 500 MG CAPSULE PO ONE (01:44)
[2017-12-01 02:01] VITALS: BP 130/96
== END 2017-12-01 02:03 | disposition home or self-care (01) ==
LOC: ER 20:37
DX: O46.90 Antepartum hemorrhage, unspecified, unspecified trimester (principal); O23.41 Unspecified infection of urinary tract in pregnancy, first trimester; R11.0 Nausea; R10.30 Lower abdominal pain, unspecified; R51 Headache
CPT/HCPCS: 36415; 76817; 80048; 81001; 81025; 84702; 85025; 86900; 86901; 87086; 87210; 87491; 87591; 99284

== ENCOUNTER 2017-12-04 13:21 | Emergency (ER) | payer MEDICAID ==
[2017-12-04 13:28] VITALS: BP 115/46
[2017-12-04] MEDS ORDERED: LORATADINE 10 MG TABLET PO ONE (14:47)
[2017-12-04] MEDS ORDERED: ACETAMINOPHEN 325 MG TABLET PO ONE (14:47)
--- NOTE | 2017-12-04 15:02 | ER Document Report ---
ED ENT - General Chief Complaint: Sore Throat Stated Complaint: SORE THROAT, COUGH Time Seen by Provider: 12/04/17 14:25 Mode of Arrival: Ambulatory Information source: Patient Notes: 22-year-old female presents to ED for cough cold congestion sore throat no fevers. She states she has a pain in her left second toe from stepping wrong yesterday. She states she is also 6 weeks . She is alert and oriented respirations regular and unlabored is afebrile at this time and walking with a even steady gait. TRAVEL OUTSIDE OF THE [place] IN LAST 30 DAYS: No - HPI Patient complains to provider of: Nose problem Onset: Other - Symptoms 2 days the sore toe yesterday Onset/Duration: Gradual Quality of pain: Achy Severity: Moderate Pain Level: 4 Context: Recent Illness, Other - Her second toe left foot Location of pain: Nose, Sinus, Throat, Other - Second toe left foot - Related Data Allergies/Adverse Reactions: Coconut * [Coconut] Allergy (Verified 12/04/17 13:22) No Known Drug Allergies Allergy (Verified 12/04/17 13:22) Past Medical History - General Information source: Patient - Social History Smoking Status: Never Smoker Cigarette use (# per day): No Chew tobacco use (# tins/day): No Smoking Education Provided: No Frequency of alcohol use: None Drug Abuse: None Lives with: Family Family History: DM, Hypertension Patient has suicidal ideation: No Patient has homicidal ideation: No - Past Medical History Cardiac Medical History: Reports: Hx Hypertension Pulmonary Medical History: Reports: None EENT Medical History: Reports: None Neurological Medical History: Reports: None Endocrine Medical History: Reports: None Renal/ Medical History: Reports: None Malignancy Medical History: Reports: None GI Medical History: Reports: None Musculoskeletal Medical History: Reports None Skin Medical History: Reports None Psychiatric Medical History: Reports: Hx Anxiety Traumatic Medical History: Reports: None Infectious Medical History: Reports: None - Immunizations Immunizations up to date: Yes Hx Diphtheria, Pertussis, Tetanus Vaccination: Yes Review of Systems - Review of Systems Constitutional: Recent illness EENT: Nose discharge, Sinus pressure, Throat pain Cardiovascular: No symptoms reported Respiratory: Cough Gastrointestinal: No symptoms reported Genitourinary: No symptoms reported Female Genitourinary: No symptoms reported Musculoskeletal: Other - Pain to the second toe on the left foot Skin: No symptoms reported Hematologic/Lymphatic: No symptoms reported Neurological/Psychological: No symptoms reported -: Yes All other systems reviewed and negative Physical Exam - Vital signs Vitals: Temp Pulse Resp BP Pulse Ox 97.7 F 73 14 115/46 L 100 12/04/17 13:26 12/04/17 13:26 12/04/17 13:26 12/04/17 13:26 12/04/17 13:26 Interpretation: Normal - General General appearance: Appears well, Alert - HEENT Head: Normocephalic, Atraumatic Eyes: Normal Pupils: PERRL Ears: Normal External canal: Normal Tympanic membrane: Normal Sinus: Normal Nasal: Purulent discharge, Swelling Mouth/Lips: Normal Mucous membranes: Normal Pharynx: Erythema, Post nasal drainage, Tonsillar hypertrophy, Other. No: Exudate Neck: Normal - Respiratory Respiratory status: No respiratory distress Chest status: Nontender Breath sounds: Normal Chest palpation: Normal - Cardiovascular Rhythm: Regular Heart sounds: Normal auscultation Murmur: No - Abdominal Inspection: Normal Distension: No distension Bowel sounds: Normal Tenderness: Nontender Organomegaly: No organomegaly - Back Back: Normal, Nontender - Extremities General upper extremity: Normal inspection, Nontender, Normal color, Normal ROM , Normal temperature General lower extremity: Normal color, Normal ROM, Normal temperature, Normal weight bearing. No: Zhen's sign Foot: Tender - Second toe left foot, Ecchymosis, Edema - Entire left foot, No evidence of FB. No: Abrasion, Deformity, Instability, Laceration, Metatarsal compress. pain, Nail injury, Navicular tenderness, Puncture wound, Tender 5th metatarsal, Unable to bear weight - Neurological Neuro grossly intact: Yes Cognition: Normal Orientation: AAOx4 Evert Coma Scale Eye Opening: Spontaneous Evert Coma Scale Verbal: Oriented Evert Coma Scale Motor: Obeys Commands Evert Coma Scale Total: 15 Speech: Normal Motor strength normal: LUE, RUE, LLE, RLE Sensory: Normal - Psychological Associated symptoms: Normal affect, Normal mood - Skin Skin Temperature: Warm Skin Moisture: Dry Skin Color: Normal Course - Re-evaluation Re-evalutation: 12/04/17 16:50 Patient stated she was 6 weeks and was concerned about have an x-ray for the toe. The second toe was [place] taped to the third toe. A strep test was taken and sent to the lab. When went to speak with patient she has left and was not found anywhere in the emergency room. Strep test was negative. - Vital Signs Vital signs: Temp Pulse Resp BP Pulse Ox 97.7 F 73 14 115/46 L 100 12/04/17 13:26 12/04/17 13:26 12/04/17 13:26 12/04/17 13:12/04/17 13:26 Discharge - Discharge Clinical Impression: pain 2nd toe left foot URI (upper respiratory infection) Qualifiers: URI type: unspecified URI Qualified Code(s): J06.9 - Acute upper respiratory infection, unspecified Disposition: ELOPED
== END 2017-12-04 16:50 | disposition left against medical advice (07) ==
LOC: ER 13:21
DX: O99.511 Diseases of the respiratory system complicating pregnancy, first trimester (principal); J06.9 Acute upper respiratory infection, unspecified; J02.9 Acute pharyngitis, unspecified; J35.1 Hypertrophy of tonsils; O26.891 Other specified pregnancy related conditions, first trimester; R05 Cough; R09.82 Postnasal drip; O9A.211 Injury, poisoning and certain other consequences of external causes complicating pregnancy, first trimester; S90.122A Contusion of left lesser toe(s) without damage to nail, initial encounter; X58.XXXA Exposure to other specified factors, initial encounter; O16.1 Unspecified maternal hypertension, first trimester; Z3A.01 Less than 8 weeks gestation of pregnancy; Z91.018 Allergy to other foods
CPT/HCPCS: 87070; 87880; 99281

== ENCOUNTER 2018-01-28 12:54 | Emergency (ER) | payer MEDICAID ==
[2018-01-28 13:00] VITALS: BP 102/59
[2018-01-28] MEDS ORDERED: NORMAL SALINE 1000 ML 1,000 ML IV ONE (13:35)
--- NOTE | 2018-01-28 13:35 | ER Document Report ---
ED Medical Screen (RME) - General Chief Complaint: Abdominal Pain Stated Complaint: ABDOMINAL PAIN Time Seen by Provider: 01/28/18 13:26 Notes: Patient is a 22 year old female , approximately 12 weeks that presents to the emergency department for chief complaint of abdominal cramping, bilateral pelvic pain, nausea and vomiting. ROS: Unless otherwise stated in this report the patient's positive and negative responses for review of systems for constitutional, eyes, ENT, cardiovascular, respiratory, gastrointestinal, neurological, genitourinary, musculoskeletal, and integumentary systems and related systems to the presenting problem are either as stated in the HPI or were not pertinent or were negative for the symptoms and/or complaints related to the presenting medical problem. PHYSICAL EXAMINATION: Vital signs reviewed. GENERAL: Well-appearing, well-nourished and in no acute distress. HEAD: Atraumatic, normocephalic. EYES: Pupils equal round extraocular movements intact, conjunctiva are normal. ENT: Nares patent NECK: Normal range of motion CV: Heart regular rate and rhythm LUNGS: No respiratory distress Musculoskeletal: Normal range of motion NEUROLOGICAL: Normal speech PSYCH: Normal mood, normal affect. MDM: Patient seen and examined for rapid initial assessment. Vital signs reviewed. A comprehensive ED assessment and evaluation of the patient, analysis of test results and completion of the medical decision making process will be conducted by additional ED providers. *Note is created using voice recognition software and may contain spelling, syntax or grammatical errors. TRAVEL OUTSIDE OF THE [place] IN LAST 30 DAYS: No - Related Data Allergies/Adverse Reactions: Coconut * [Coconut] Allergy (Verified 01/28/18 12:54) No Known Drug Allergies Allergy (Verified 01/28/18 12:54) Past Medical History - Past Medical History Cardiac Medical History: Reports: Hx Hypertension Renal/ Medical History: Denies: Hx Peritoneal Dialysis Psychiatric Medical History: Reports: Hx Anxiety - Immunizations Immunizations up to date: Yes Hx Diphtheria, Pertussis, Tetanus Vaccination: Yes Physical Exam - Vital signs Vitals: Temp Pulse Resp BP Pulse Ox 98.4 F 86 18 102/59 L 100 01/28/18 12:59 01/28/18 12:59 01/28/18 12:59 01/28/18 12:59 01/28/18 12:59 Course - Vital Signs Vital signs: Temp Pulse Resp BP Pulse Ox 98.4 F 86 18 102/59 L 100 01/28/18 12:59 01/28/18 12:59 01/28/18 12:59 01/28/18 12:59 01/28/18 12:59
[2018-01-28 14:28] LABS: ABSOLUTE EOSINOPHILS # (AUTO) 0.1 10^3/uL (0.0-0.6); ABSOLUTE LYMPHOCYTES (AUTO) 1.6 10^3/uL (0.5-4.7); ABSOLUTE MONOCYTES (AUTO) 0.3 10^3/uL (0.1-1.4); ABSOLUTE NEUT (AUTO) 3.9 10^3/uL (1.7-8.2); APPEARANCE,URINE SLIGHTLY-CLOUDY; BASOPHILS % (AUTO) 0.3 % (0-2); BILIRUBIN,URINE NEGATIVE (NEGATIVE); COLOR,URINE YELLOW; EOSINOPHILS % (AUTO) 1.1 % (0-6); GLUCOSE, URINE NEGATIVE (NEGATIVE); HEMATOCRIT 37.3 % (36.0-47.0); HEMOGLOBIN 12.9 g/dL (12.0-15.5); KETONES,URINE 20 mg/dL (NEGATIVE); LEUKOCYTE ESTERASE,URINE TRACE (NEGATIVE); LYMPHOCYTES % (AUTO) 26.3 % (13-45); MEAN CORPUSCULAR HEMOGLOBIN 30.6 pg (27.0-33.4); MEAN CORPUSCULAR HGB CONC 34.6 g/dL (32.0-36.0); MEAN CORPUSCULAR VOLUME 89 fl (80-97); MONOCYTES % (AUTO) 5.7 % (3-13); NITRITE,URINE NEGATIVE (NEGATIVE); PLATELET COUNT 223 10^3/uL (150-450); PROTEIN,URINE NEGATIVE (NEGATIVE); RED BLOOD COUNT 4.22 10^6/uL (3.72-5.28); RED CELL DISTRIBUTION WIDTH 13.1 % (11.5-14.0); SEGMENTED NEUTROPHILS % (AUTO) 66.6 % (42-78); TOTAL CELLS COUNTED % (AUTO) 100 %; URINE SPECIFIC GRAVITY 1.023; UROBILINOGEN,URINE NEGATIVE mg/dL (<2.0); WHITE BLOOD COUNT 5.9 10^3/uL (4.0-10.5)
[2018-01-28 14:51] LABS: ALANINE AMINOTRANSFERASE 12 U/L (9-52); ALKALINE PHOSPHATASE 60 U/L (38-126); ANION GAP 10 (5-19); ASPARTATE AMINO TRANSFERASE 24 U/L (14-36); BILIRUBIN,DIRECT 0.2 mg/dL (0.0-0.4); BILIRUBIN,TOTAL 1.2 mg/dL (0.2-1.3); BLOOD UREA NITROGEN 10 mg/dL (7-20); CALCIUM 9.7 mg/dL (8.4-10.2); CARBON DIOXIDE 23 mmol/L (22-30); CHLORIDE 104 mmol/L (98-107); GLUCOSE 76 mg/dL (75-110); POTASSIUM 4.4 mmol/L (3.6-5.0); SODIUM 137.1 mmol/L (137-145); TOTAL PROTEIN 7.6 g/dL (6.3-8.2)
--- NOTE | 2018-01-28 14:55 | ER Document Report ---
ED GI/ - General Chief Complaint: Abdominal Pain Stated Complaint: ABDOMINAL PAIN Time Seen by Provider: 01/28/18 13:26 Mode of Arrival: Ambulatory Information source: Patient Notes: 22-year-old female presents to ED for complaint of lower abdominal pain bilaterally. She is approximately 12 weeks at present. She states this is her first baby. She denies any vaginal bleeding. She does complain of nausea and vomiting. Patient is alert and oriented respirations regular and unlabored speaking in full sentences walks with a even steady gait. TRAVEL OUTSIDE OF THE [place] IN LAST 30 DAYS: No - HPI Patient complains to provider of: Pelvic pain, Onset: Other Timing/Duration: Gradual, Intermittent Quality of pain: Burning Severity at maximum: Severe Severity in ED: Moderate Pain Level: 3 Location: Other Vaginal bleeding (Compared to normal period): None Associated symptoms: Nausea, Vomiting Exacerbated by: Denies Relieved by: Denies Similar symptoms previously: Yes Recently seen / treated by doctor: Yes - Related Data Allergies/Adverse Reactions: Coconut * [Coconut] Allergy (Verified 01/28/18 12:54) No Known Drug Allergies Allergy (Verified 01/28/18 12:54) Past Medical History - General Information source: Patient - Social History Smoking Status: Former Smoker Cigarette use (# per day): No Chew tobacco use (# tins/day): No Smoking Education Provided: No Frequency of alcohol use: None Drug Abuse: None Lives with: Family Family History: DM, Hypertension Patient has suicidal ideation: No Patient has homicidal ideation: No - Past Medical History Cardiac Medical History: Reports: None Pulmonary Medical History: Reports: None EENT Medical History: Reports: None Neurological Medical History: Reports: None Endocrine Medical History: Reports: None Renal/ Medical History: Reports: None Malignancy Medical History: Reports: None GI Medical History: Reports: None Musculoskeletal Medical History: Reports None Skin Medical History: Reports None Psychiatric Medical History: Reports: Hx Anxiety Traumatic Medical History: Reports: None Infectious Medical History: Reports: None Surgical Hx: Negative Past Surgical History: Reports: None - Immunizations Immunizations up to date: Yes Hx Diphtheria, Pertussis, Tetanus Vaccination: Yes Review of Systems - Review of Systems Constitutional: No symptoms reported EENT: No symptoms reported Cardiovascular: No symptoms reported Respiratory: No symptoms reported Gastrointestinal: Abdominal pain, Nausea, Vomiting Genitourinary: No symptoms reported Female Genitourinary: Musculoskeletal: No symptoms reported Skin: No symptoms reported Hematologic/Lymphatic: No symptoms reported Neurological/Psychological: No symptoms reported -: Yes All other systems reviewed and negative Physical Exam - Vital signs Vitals: Temp Pulse Resp BP Pulse Ox 98.4 F 86 18 102/59 L 100 01/28/18 12:59 01/28/18 12:59 01/28/18 12:59 01/28/18 12:59 01/28/18 12:59 Interpretation: Normal - General General appearance: Appears well, Alert - HEENT Head: Normocephalic, Atraumatic Eyes: Normal Pupils: PERRL - Respiratory Respiratory status: No respiratory distress Chest status: Nontender Breath sounds: Normal Chest palpation: Normal - Cardiovascular Rhythm: Regular Heart sounds: Normal auscultation Murmur: No - Abdominal Inspection: Normal Distension: No distension Bowel sounds: Normal Tenderness: Other - Tender in the area of round ligaments. Organomegaly: No organomegaly - Back Back: Normal, Nontender - Extremities General upper extremity: Normal inspection, Nontender, Normal color, Normal ROM , Normal temperature General lower extremity: Normal inspection, Nontender, Normal color, Normal ROM , Normal temperature, Normal weight bearing. No: Zhen's sign - Neurological Neuro grossly intact: Yes Cognition: Normal Orientation: AAOx4 Evert Coma Scale Eye Opening: Spontaneous Evert Coma Scale Verbal: Oriented Bancroft Coma Scale Motor: Obeys Commands Evert Coma Scale Total: 15 Speech: Normal Motor strength normal: LUE, RUE, LLE, RLE Sensory: Normal - Psychological Associated symptoms: Normal affect, Normal mood - Skin Skin Temperature: Warm Skin Moisture: Dry Skin Color: Normal Course - Vital Signs Vital signs: Temp Pulse Resp BP Pulse Ox 98 F 80 16 102/59 L 100 01/28/18 16:31 01/28/18 16:31 01/28/18 16:31 01/28/18 16:31 01/28/18 16:31 - Laboratory Result Diagrams: 01/28/18 13:54 01/28/18 13:54 Laboratory results interpreted by me: 01/28/18 01/28/18 13:54 13:54 Beta HCG, Quant 47290.00 H Urine Ketones 20 H Ur Leukocyte Esterase TRACE H Discharge - Discharge Clinical Impression: Abdominal pain affecting Condition: Stable Disposition: HOME, SELF-CARE Additional Instructions: Pelvic Pain in Lower abdominal pain during can have many causes. We look for serious causes such as appendicitis, tubal , miscarriage, placental separation, or urinary tract infection. Less serious causes of pain include corpus luteum cyst (ovarian cyst of ) or stretching of the pelvic tissues by the enlarging uterus. Sometimes the pain comes from the bowels. If no specific cause for the pain is found, we attribute the pain to stretching of the uterine ligaments. This is called "round ligament strain." It is not dangerous. Just rest until the pain goes away. Call us or come back for reexamination if any problems occur, such as: (1) Pain that becomes more severe, steady, or becomes concentrated in one specific area. Also, pain that is more severe with movement or coughing. (2) Vomiting that persists or becomes more frequent. (3) Blood in the vomitus, urine, or bowel movements. Blood in the stool may have a tarry or black appearance. (4) Shaking chills or fever greater than 100 degrees. (5) The abdomen becomes more distended or swollen. (6) Bowel movements cease. (7) Vaginal bleeding. Pelvic Pain and Round Ligament Pain Lower abdominal pain during can have many causes. We look for serious causes such as appendicitis, tubal , miscarriage, placental separation, or urinary tract infection. Less serious causes of pain include corpus luteum cyst (ovarian cyst of ) or stretching of the pelvic tissues by the enlarging uterus. Sometimes the pain comes from the bowels. If no specific cause for the pain is found, we attribute the pain to stretching of the uterine ligaments. This is called "round ligament strain." It is not dangerous. Just rest until the pain goes away. Call us or come back for reexamination if any problems occur, such as: (1) Pain that becomes more severe, steady, or becomes concentrated in one specific area. Also, pain that is more severe with movement or coughing. (2) Vomiting that persists or becomes more frequent. (3) Blood in the vomitus, urine, or bowel movements. Blood in the stool may have a tarry or black appearance. (4) Shaking chills or fever greater than 100 degrees. (5) The abdomen becomes more distended or swollen. (6) Bowel movements cease. (7) Vaginal bleeding. FOLLOW-UP CARE: If you have been referred to a physician for follow-up care, call the physician s office for an appointment as you were instructed or within the next two days. If you experience worsening or a significant change in your symptoms, notify the physician immediately or return to the Emergency Department at any time for re-evaluation. Forms: Return to Work Referrals: [facility] [Provider Group] - Follow up as needed
== END 2018-01-28 16:28 | disposition home or self-care (01) ==
LOC: ER 12:54
DX: O26.899 Other specified pregnancy related conditions, unspecified trimester (principal); R10.2 Pelvic and perineal pain; O21.9 Vomiting of pregnancy, unspecified; Z3A.00 Weeks of gestation of pregnancy not specified; Z91.018 Allergy to other foods; Z87.891 Personal history of nicotine dependence
CPT/HCPCS: 99284; 96360; 36415; 84702; 85025; 80053; 81001; J7030

== ENCOUNTER 2018-03-22 13:09 | Emergency (ER) | payer MEDICAID ==
--- NOTE | 2018-03-22 14:09 | ER Document Report ---
ED Medical Screen (RME) - General Chief Complaint: Vaginal Discharge Stated Complaint: VAGINAL ISSUE Time Seen by Provider: 03/22/18 14:00 TRAVEL OUTSIDE OF THE [place] IN LAST 30 DAYS: No - HPI Notes: 03/22/18 14:08 Patient is a 22-year-old female at 24 weeks gestational age that presents to the emergency department for chief complaint of vaginal swelling and pain. Patient is having vaginal irritation and states her vagina appears swollen. She also endorses dysuria.. ROS: GENERAL: Denies fever of chills CV: Denies chest pain PHYSICAL EXAMINATION: GENERAL: Well-appearing, well-nourished and in no acute distress. HEAD: Atraumatic, normocephalic. EYES: Pupils equal round extraocular movements intact, conjunctiva are normal. ENT: Nares patent NECK: Normal range of motion LUNGS: No respiratory distress Musculoskeletal: Normal range of motion NEUROLOGICAL: Normal speech, normal gait. PSYCH: Normal mood, normal affect. MDM: Patient seen and examined for rapid initial assessment. Vital signs reviewed. A comprehensive ED assessment and evaluation of the patient, analysis of test results and completion of the medical decision making process will be conducted by additional ED providers. - Related Data Allergies/Adverse Reactions: Coconut * [Coconut] Allergy (Verified 03/22/18 13:11) No Known Drug Allergies Allergy (Verified 03/22/18 13:11) Past Medical History - Past Medical History Cardiac Medical History: Reports: Hx Hypertension Renal/ Medical History: Denies: Hx Peritoneal Dialysis Psychiatric Medical History: Reports: Hx Anxiety - Immunizations Immunizations up to date: Yes Hx Diphtheria, Pertussis, Tetanus Vaccination: Yes Physical Exam - Vital signs Vitals: Temp Pulse Resp BP Pulse Ox 97.4 F 78 16 110/47 L 100 03/22/18 13:35 03/22/18 13:35 03/22/18 13:35 03/22/18 13:35 03/22/18 13:35 Course - Vital Signs Vital signs: Temp Pulse Resp BP Pulse Ox 97.4 F 78 16 110/47 L 100 03/22/18 13:35 03/22/18 13:35 03/22/18 13:35 03/22/18 13:35 03/22/18 13:35
[2018-03-22 14:54] LABS: APPEARANCE,URINE CLOUDY; BILIRUBIN,URINE NEGATIVE (NEGATIVE); COLOR,URINE YELLOW; GLUCOSE, URINE NEGATIVE (NEGATIVE); KETONES,URINE TRACE mg/dL (NEGATIVE); LEUKOCYTE ESTERASE,URINE LARGE (NEGATIVE); NITRITE,URINE NEGATIVE (NEGATIVE); PROTEIN,URINE 30 mg/dL (NEGATIVE); URINE SPECIFIC GRAVITY 1.027; UROBILINOGEN,URINE NEGATIVE mg/dL (<2.0)
[2018-03-22 18:00] LABS: T.VAGINALIS (WET MOUNT) TRICHOMONAS SEEN; WBCS (WET MOUNT) RARE WBCS SEEN; YEAST (WET MOUNT) YEAST SEEN
[2018-03-22 18:01] LABS: BACTERIA (WET MOUNT) 3+ BACTERIA SEEN; EPITHELIALS (WET MOUNT) 3+ EPITHELIALS SEEN; RBCS (WET MOUNT) RARE RBCS SEEN
[2018-03-22 18:15] LABS: CHLAM PCR NOT DETECTED (NOT DETECT); GON PCR NOT DETECTED (NOT DETECT)
[2018-03-22] MEDS ORDERED: METRONIDAZOLE 500 MG TABLET PO ONE (19:11)
[2018-03-22] MEDS ORDERED: NITROFURANTOIN MONOHYD/M-CRYST 100 MG CAPSULE PO ONE (19:13)
--- NOTE | 2018-03-22 19:23 | ER Document Report ---
ED GI/ - General Chief Complaint: Vaginal Discharge Stated Complaint: VAGINAL ISSUE Time Seen by Provider: 03/22/18 14:00 Mode of Arrival: Ambulatory Information source: Patient Notes: Patient is a 22-year-old female comes emergency room complaining of burning itching and pain in her private parts. Patient states that she had gone to see her [employer] and she informed him that any soap that she use was causing her discomfort and pain in the area she is tried changing out the soaps multiple times and recently just changed out to Ivory soap she states 10 minutes after using that her vagina swelled up especially her vaginal lips and she is not been wanting to pee because of the pain and discomfort it causes. She states she been holding her urine because it is too painful to be she states she has used Vagisil anti-itch cream with no benefits. Patient states she is approximately 3 months into her . She is 1 P0 she denies any known discharge and she denies any fevers. She also denies any other medical problems. TRAVEL OUTSIDE OF THE [place] IN LAST 30 DAYS: No - HPI Patient complains to provider of: Vaginal pain Onset: Other - Past month Timing/Duration: Gradual, Persistent, Worse Quality of pain: No pain Severity at maximum: Severe Severity in ED: Moderate Pain Level: 4 Location: Vaginal, Vulvar Vaginal bleeding (Compared to normal period): denies: None : 1 Para: 0 Abortions: 0 heart tones (bpm): 150 Sexual history: Active, Unprotected intercourse Associated symptoms: Dysuria Exacerbated by: Denies Relieved by: Denies Similar symptoms previously: Yes Recently seen / treated by doctor: Yes - Related Data Allergies/Adverse Reactions: Coconut * [Coconut] Allergy (Verified 03/22/18 13:11) No Known Drug Allergies Allergy (Verified 03/22/18 13:11) Past Medical History - General Last Menstrual Period: 10/29/17 - Social History Smoking Status: Never Smoker Cigarette use (# per day): No Chew tobacco use (# tins/day): No Smoking Education Provided: No Frequency of alcohol use: None Drug Abuse: None Lives with: Family Family History: Reviewed & Not Pertinent, DM, Hypertension Patient has suicidal ideation: No Patient has homicidal ideation: No - Past Medical History Cardiac Medical History: Reports: Hx Hypertension Renal/ Medical History: Denies: Hx Peritoneal Dialysis Psychiatric Medical History: Reports: Hx Anxiety - Immunizations Immunizations up to date: Yes Hx Diphtheria, Pertussis, Tetanus Vaccination: Yes Review of Systems - Review of Systems Constitutional: No symptoms reported EENT: No symptoms reported Cardiovascular: No symptoms reported Respiratory: No symptoms reported Gastrointestinal: No symptoms reported Genitourinary: See HPI, Dysuria Female Genitourinary: See HPI, Musculoskeletal: No symptoms reported Skin: No symptoms reported Hematologic/Lymphatic: No symptoms reported Neurological/Psychological: No symptoms reported -: Yes All other systems reviewed and negative Physical Exam - Vital signs Vitals: Temp Pulse Resp BP Pulse Ox 97.4 F 78 16 110/47 L 100 03/22/18 13:35 03/22/18 13:35 03/22/18 13:35 03/22/18 13:35 03/22/18 13:35 Interpretation: Normal - Notes Notes: PHYSICAL EXAMINATION: GENERAL: Well-appearing, well-nourished and in no acute distress. HEAD: Atraumatic, normocephalic. EYES: Pupils equal round and reactive to light, extraocular movements intact, conjunctiva are normal. ENT: Nares patent, oropharynx clear without exudates. Moist mucous membranes. NECK: Normal range of motion, supple without lymphadenopathy LUNGS: Breath sounds clear to auscultation bilaterally and equal. No wheezes rales or rhonchi. HEART: Regular rate and rhythm without murmurs ABDOMEN: Patient has a gravid abdomen. With activity felt Female : pelvic exam shows externally fairly normal looking female genitalia. There is however engorgement of the labial fold with labia minora more marked swelling and apparent dryness then labia majora. The entire vulva is moderately erythematous and dry appearing. Entering the introitus patient's vaginal urbina have a whitish adherence that is scattered throughout the vaginal tract. Patient's cervix appears normal with this discharge covering the frontal portion and the vaginal vault area. It is a whitish smalls discharge. There was no tenderness noted while doing the pelvic exam. The urbina of the vagina also appeared more reddened and dry than usual. Musculoskeletal: Normal range of motion, no pitting or edema. No cyanosis. NEUROLOGICAL: Normal speech, normal gait. Normal sensory, motor exams PSYCH: Normal mood, normal affect. SKIN: Warm, Dry, normal turgor, no rashes or lesions noted. Course - Re-evaluation Re-evalutation: 03/22/18 19:35 Patient's course of stay in the emergency room was extended secondary to waiting for test is not usually performed and waiting for results. Patient was found to have a UTI, a yeast infection, and trichomonas. Her chlamydia and gonorrhea were negative. I did discuss the case with Dr. Jena Lopez who she is in favor of treating with the 2 g of Flagyl 1 time here in the hospital placing her on Macrobid and using miconazole vaginal cream externally twice daily. I have gone in and inform patient of the findings she was there by herself she believes that her baby's father went out with another woman but he denied it. I have explained to her that both partners need to be treated and that they need to abstain leaves for 10 days after taking the antibiotics because if they do not W flipped it back and forth. - Vital Signs Vital signs: Temp Pulse Resp BP Pulse Ox 97.4 F 78 16 110/47 L 100 03/22/18 13:35 03/22/18 13:35 03/22/18 13:35 03/22/18 13:35 03/22/18 13:35 - Laboratory Laboratory results interpreted by me: 03/22/18 13:45 Urine Protein 30 H Urine Ketones TRACE H Ur Leukocyte Esterase LARGE H Discharge - Discharge Clinical Impression: Trichomonas infection Urinary tract infection Qualifiers: Urinary tract infection type: acute cystitis Hematuria presence: without hematuria Qualified Code(s): N30.00 - Acute cystitis without hematuria Condition: Stable Disposition: HOME, SELF-CARE Instructions: Nitrofurantoin ([facility]), Urinary Tract Infection ([facility]), Trichomonas Infection ([facility]), Vaginal Yeast Infection ([facility]) Additional Instructions: Vaginal Yeast Infection You have evidence of a yeast infection -- called "milo." A vaginal yeast infection often causes itching and discharge. While not dangerous, it can be very unpleasant. A yeast infection often follows the use of powerful antibiotics. It is more likely to occur in diabetics. The treatment now is usually a single pill of Diflucan, but also an antifungal cream or suppository may be used for a few days. You do not need to avoid sexual intercourse. Recurrences are common. You can make a recurrence less likely by wearing cotton underwear and avoiding tight clothing. For mild recurrences, you can try [id number] creams or suppositories that are made specifically for yeast. If the symptoms do not resolve, you should follow up for re-examination. Sometimes treatment of the sexual partner is necessary if infections are recurrent. Trichomonas Infection Trichomoniasis is infection of the vagina or male genital tract with Trichomonas vaginalis. It can be asymptomatic or cause urethritis, vaginitis, or occasionally cystitis, epididymitis, or prostatitis. Diagnosis is by microscopic examination of vaginal or prostatic secretions or by urethral culture. Patients and sex partners are treated with metronidazole. T. vaginalis is a flagellated, sexually transmitted protozoan that more often infects women (about 20% of women of reproductive age) than men. Infection may be asymptomatic in either sex, but asymptomatic is the rule for men. In men , protozoa may persist for long periods in the tract without causing symptoms; thus, protozoa may be transmitted unwittingly to sex partners. Trichomoniasis may account for up to 5% of nongonococcal, nonchlamydial urethritis in men in some areas. Co-infection with gonorrhea and other sexually transmitted diseases (STDs) is common. In women, symptoms range from none to copious, yellow-green, frothy vaginal discharge with soreness of the vulva and perineum, dyspareunia, and dysuria. Asymptomatic infection may become symptomatic at any time as the vulva and perineum become inflamed and edema develops in the labia. The vaginal urbina and surface of the cervix may have punctate, red "strawberry" spots. Urethritis and possibly cystitis may also occur. Men are usually asymptomatic; however, sometimes urethritis results in a discharge that may be transient, frothy, or purulent or that causes dysuria and frequency, usually early in the morning. Often, urethritis is mild and causes o nly minimal urethral irritation and occasional moisture at the urethral meatus, under the foreskin, or both. Epididymitis and prostatitis are rare complications. Trichomoniasis is suspected in women with vaginitis, in men with urethritis, and in their sex partners. Suspicion is high if symptoms persist after patients have been evaluated and treated for other infections such as gonorrhea and chlamydial, mycoplasmal, and ureaplasmal infections. In women, diagnosis is based on clinical criteria and in-office testing. The saline wet mount is examined microscopically as soon as possible to detect trichomonads.In men, microscopy of urine is insensitive, although occasionally organisms are visible in a first-voided morning specimen or a centrifuged specimen. Cultures of urine and urethral swabs are more sensitive. As with diagnosis of any STD, patients with trichomoniasis should be tested to exclude other common STDs such as gonorrhea and chlamydial infection. Metronidazole or tinidazole 2 g po in a single dose cures up to 95% of women if sex partners are treated simultaneously. Effectiveness of single-dose regimens in men is not as clear, so treatment is typically with metronidazole or tinidazole 500 mg bid for 5 to 7 days. Sex partners should be screened and treated for trichomoniasis and other STDs. If poor adherence to follow-up is likely, treatment can be initiated in sex partners of patients with documented trichomoniasis without confirming the diagnosis in the partner. As we did discuss both you and your partner need to be treated and abstain from intercourse 10 days after taking the antibiotics. There are at minimum 2 ways to treat the Trichomonas you can do 4 pills at one time or 1 pill twice a day for 7-10 days. And then you wait 10 days before you have intercourse. You need to bring this to the attention of your [employer] for the need to know what is going on. Should you have any concerns or problems return to ER for recheck. Prescriptions: Miconazole Nitrate [Miconazole 3] 25 gm VG BID 10 Days #1 tube Nitrofurantoin/Nitrofuran Mac [Macrobid 100 mg Capsule] 1 tab PO BID 10 Days #20 capsule Referrals: [facility] [Provider Group] - Follow up as needed
[2018-03-22 20:10] VITALS: BP 102/52
== END 2018-03-22 20:10 | disposition home or self-care (01) ==
LOC: ER 13:09
DX: O23.12 Infections of bladder in pregnancy, second trimester (principal); O98.812 Other maternal infectious and parasitic diseases complicating pregnancy, second trimester; A59.9 Trichomoniasis, unspecified; B37.9 Candidiasis, unspecified; O16.2 Unspecified maternal hypertension, second trimester; Z3A.20 20 weeks gestation of pregnancy; Z91.018 Allergy to other foods
CPT/HCPCS: 99283; 87086; 87210 ×2; 87088; 81001; 87491; 87591; J3490 ×2; J8499

== ENCOUNTER 2018-04-23 18:13 | Emergency (ER) | payer MEDICAID ==
[2018-04-23 18:20] VITALS: BP 111/69
[2018-04-23] MEDS ORDERED: ACETAMINOPHEN 325 MG TABLET PO ONE (19:03)
--- NOTE | 2018-04-23 19:41 | ER Document Report ---
ED General - General Chief Complaint: Breathing Difficulty Stated Complaint: ACCIDENTAL INHALATION/CLEANING CHEMICALS Time Seen by Provider: 04/23/18 18:34 Notes: Patient is a 22-year-old female that is approximately 26 weeks gravid that presents to the emergency department for chief complaint of cough after inhalation of cleaning chemicals. Patient states that she was cleaning the bathroom, with household bleach, Lysol, and kaboom, and states that she thinks she may have inhaled too much of it, caused a cough, and irritation in the back of her throat. Because of this she came to the emergency department. She had a dry cough associated with it, and some burning in the chest, she did not pass out, but did have some lightheadedness, she currently rates her pain as a 2 out of 10, describes as a burning sensation. She is currently as noted above, was worried about that as well. She is not sure of the entire exposure, but does not think it was more than several minutes. Past Medical History: Denies chronic medical conditions Past Surgical History: Denies surgical history Social History: Denies tobacco, alcohol or drug use. Family History: Reviewed and noncontributory for presenting illness Allergies: Reviewed, see documented allergy list. REVIEW OF SYSTEMS: Other than noted above, the 12 point review of systems was reviewed with the patient and were negative, all pertinent findings are included in the HPI. PHYSICAL EXAMINATION: Vital signs reviewed, nursing noted reviewed. GENERAL: Well-appearing, well-nourished and in no acute distress. HEAD: Atraumatic, normocephalic. EYES: Eyes appear normal, extraocular movements intact, sclera anicteric, conjunctiva are normal. ENT: nares patent, oropharynx clear without exudates. Moist mucous membranes. NECK: Normal range of motion, supple without lymphadenopathy LUNGS: Breath sounds clear to auscultation bilaterally and equal. No wheezes rales or rhonchi. HEART: Regular rate and rhythm without murmurs ABDOMEN: Soft, nontender, normoactive bowel sounds. No rebound, guarding, or rigidity. No masses appreciated. EXTREMITIES: Nontender, good range of motion, no pitting or edema. NEUROLOGICAL: No focal neurological deficits. Moves all extremities spontaneously Motor and sensory grossly intact on exam. PSYCH: Normal mood, normal affect. SKIN: Warm, Dry, normal turgor, no rashes or lesions noted on exposed skin TRAVEL OUTSIDE OF THE [place] IN LAST 30 DAYS: No - Related Data Allergies/Adverse Reactions: Coconut * [Coconut] Allergy (Verified 03/22/18 13:11) No Known Drug Allergies Allergy (Verified 03/22/18 13:11) Past Medical History - Social History Smoking Status: Unknown if Ever Smoked Family History: Reviewed & Not Pertinent, DM, Hypertension Patient has suicidal ideation: No Patient has homicidal ideation: No - Past Medical History Cardiac Medical History: Reports: Hx Hypertension Renal/ Medical History: Denies: Hx Peritoneal Dialysis Psychiatric Medical History: Reports: Hx Anxiety - Immunizations Immunizations up to date: Yes Hx Diphtheria, Pertussis, Tetanus Vaccination: Yes Physical Exam - Vital signs Vitals: Temp Pulse Resp BP Pulse Ox 97.8 F 98 20 111/69 99 04/23/18 18:18 04/23/18 18:18 04/23/18 18:18 04/23/18 18:18 04/23/18 18:18 Course - Re-evaluation Re-evalutation: Patient seen and examined, vital signs reviewed, patient appears well on exam, no acute findings or concerning findings. I did perform a brief limited OB ultrasound transabdominally, good movements, heart rate measured at 144 bpm, patient was reassured, given a dose of Tylenol, advised that she could take Tylenol for pain, or Chloraseptic spray if needed for her throat irritation that her symptoms should resolve in the next 24-48 hours. She is also advised to follow-up with her OCULAR CARE TECHNICIAN. - Vital Signs Vital signs: Temp Pulse Resp BP Pulse Ox 97.8 F 98 20 111/69 99 04/23/18 18:18 04/23/18 18:18 04/23/18 18:18 04/23/18 18:18 04/23/18 18:18 Discharge - Discharge Clinical Impression: Inhalation of cleaning agent Condition: Stable Disposition: HOME, SELF-CARE Instructions: Inhalation Injury ([facility]) Additional Instructions: Your symptoms should resolve in the next 24-48 hours, please follow-up with the OCULAR CARE TECHNICIAN's, you can take Tylenol if needed for pain, otherwise if you have worsening symptoms, vomiting, or worsening pain, do not hesitate to return to the emergency department. Referrals: [facility] [Provider Group] - Follow up as needed
== END 2018-04-23 19:42 | disposition home or self-care (01) ==
LOC: ER 18:13
DX: O9A.219 Injury, poisoning and certain other consequences of external causes complicating pregnancy, unspecified trimester (principal); T65.891A Toxic effect of other specified substances, accidental (unintentional), initial encounter; R05 Cough; R42 Dizziness and giddiness; R09.89 Other specified symptoms and signs involving the circulatory and respiratory systems; Y92.009 Unspecified place in unspecified non-institutional (private) residence as the place of occurrence of the external cause; O16.9 Unspecified maternal hypertension, unspecified trimester; Z3A.00 Weeks of gestation of pregnancy not specified; Z91.018 Allergy to other foods
CPT/HCPCS: 99283; J3490

== ENCOUNTER 2018-07-04 17:37 | Emergency (ER) | payer MEDICAID ==
[2018-07-04 17:46] VITALS: BP 120/76
[2018-07-04] MEDS ORDERED: ONDANSETRON HCL INJ/PF 4 MG/2 ML SDV IV ONE (17:48)
[2018-07-04] MEDS ORDERED: NORMAL SALINE 1000 ML 1,000 ML IV PRN (17:48)
--- NOTE | 2018-07-04 17:57 | ER Document Report ---
ED Medical Screen (RME) - General Chief Complaint: Nausea/Vomiting Stated Complaint: VOMITING Time Seen by Provider: 07/04/18 17:53 TRAVEL OUTSIDE OF THE [place] IN LAST 30 DAYS: No - HPI Notes: 07/04/18 17:56 Patient is a 23-year-old female who is approximately 36 weeks who presents emergency department complaining of nausea, vomiting, and some watery diarrhea that began at 4 AM today. Patient states that she has no associated abdominal pain or cramping. She is urinating normally. No other significant past medical history. She has not noticed any vaginal discharge, odor, or bleeding. Denies fever, chest pain, cough, shortness of breath, dysuria, or rash. I have treated and performed a rapid initial assessment of this patient. A comprehensive ED assessment and evaluation of the patient, analysis of test results and completion of medical decision making process will be conducted by additional ED providers. PHYSICAL EXAMINATION: GENERAL: Well-appearing, well-nourished and in no acute distress. A&Ox4. Answers questions appropriately. LUNGS: Breath sounds clear to auscultation bilaterally and equal. No wheezes rales or rhonchi. HEART: Regular rate and rhythm without murmurs, rubs, gallops. ABDOMEN: Soft, gravid abdomen. No guarding, no rebound. Normal bowel sounds present. No CVA tenderness bilaterally. Nontender Extremities: No cyanosis, clubbing, or edema b/l. NEUROLOGICAL: Normal speech, normal gait. PSYCH: Normal mood, normal affect. - Related Data Allergies/Adverse Reactions: Coconut * [Coconut] Allergy (Verified 07/04/18 17:39) No Known Drug Allergies Allergy (Verified 07/04/18 17:39) Past Medical History - Past Medical History Cardiac Medical History: Reports: Hx Hypertension Renal/ Medical History: Denies: Hx Peritoneal Dialysis Psychiatric Medical History: Reports: Hx Anxiety - Immunizations Immunizations up to date: Yes Hx Diphtheria, Pertussis, Tetanus Vaccination: Yes Physical Exam - Vital signs Vitals: Temp Pulse Resp BP Pulse Ox 98.3 F 85 16 120/76 100 07/04/18 17:44 07/04/18 17:44 07/04/18 17:44 07/04/18 17:44 07/04/18 17:44 Course - Vital Signs Vital signs: Temp Pulse Resp BP Pulse Ox 98.3 F 85 16 120/76 100 07/04/18 17:44 07/04/18 17:44 07/04/18 17:44 07/04/18 17:44 07/04/18 17:44
[2018-07-04 19:18] LABS: ABSOLUTE LYMPHOCYTES (AUTO) 0.9 10^3/uL (0.5-4.7); ABSOLUTE MONOCYTES (AUTO) 0.3 10^3/uL (0.1-1.4); ABSOLUTE NEUT (AUTO) 10.5 10^3/uL (1.7-8.2); BASOPHILS % (AUTO) 0.1 % (0-2); EOSINOPHILS % (AUTO) 0.1 % (0-6); HEMATOCRIT 31.7 % (36.0-47.0); HEMOGLOBIN 10.8 g/dL (12.0-15.5); LYMPHOCYTES % (AUTO) 7.3 % (13-45); MEAN CORPUSCULAR HEMOGLOBIN 30.2 pg (27.0-33.4); MEAN CORPUSCULAR HGB CONC 34.1 g/dL (32.0-36.0); MEAN CORPUSCULAR VOLUME 89 fl (80-97); MONOCYTES % (AUTO) 2.2 % (3-13); PLATELET COUNT 205 10^3/uL (150-450); RED BLOOD COUNT 3.59 10^6/uL (3.72-5.28); RED CELL DISTRIBUTION WIDTH 12.6 % (11.5-14.0); SEGMENTED NEUTROPHILS % (AUTO) 90.3 % (42-78); TOTAL CELLS COUNTED % (AUTO) 100 %; WHITE BLOOD COUNT 11.7 10^3/uL (4.0-10.5)
[2018-07-04 19:31] LABS: APPEARANCE,URINE SLIGHTLY-CLOUDY; BILIRUBIN,URINE NEGATIVE (NEGATIVE); COLOR,URINE STRAW; GLUCOSE, URINE NEGATIVE (NEGATIVE); KETONES,URINE NEGATIVE (NEGATIVE); LEUKOCYTE ESTERASE,URINE LARGE (NEGATIVE); NITRITE,URINE NEGATIVE (NEGATIVE); PROTEIN,URINE NEGATIVE (NEGATIVE); URINE SPECIFIC GRAVITY 1.008; UROBILINOGEN,URINE NEGATIVE mg/dL (<2.0)
[2018-07-04 19:36] LABS: ALANINE AMINOTRANSFERASE 15 U/L (9-52); ALBUMIN 3.3 g/dL (3.5-5.0); ALKALINE PHOSPHATASE 212 U/L (38-126); ANION GAP 7 (5-19); ASPARTATE AMINO TRANSFERASE 21 U/L (14-36); BILIRUBIN,DIRECT 0.1 mg/dL (0.0-0.4); BILIRUBIN,TOTAL 0.6 mg/dL (0.2-1.3); BLOOD UREA NITROGEN 7 mg/dL (7-20); CALCIUM 9.3 mg/dL (8.4-10.2); CARBON DIOXIDE 21 mmol/L (22-30); CHLORIDE 108 mmol/L (98-107); GLUCOSE 82 mg/dL (75-110); LIPASE 95.3 U/L (23-300); POTASSIUM 4.6 mmol/L (3.6-5.0); SODIUM 135.6 mmol/L (137-145); TOTAL PROTEIN 6.2 g/dL (6.3-8.2)
--- NOTE | 2018-07-04 22:05 | ER Document Report ---
ED General - General Chief Complaint: Nausea/Vomiting Stated Complaint: VOMITING Time Seen by Provider: 07/04/18 17:53 Primary Care Provider: JAMISON RICHARD MD [Primary Care Provider] - Follow up as needed Notes: Patient eloped from this emergency department TRAVEL OUTSIDE OF THE [place] IN LAST 30 DAYS: No - Related Data Allergies/Adverse Reactions: Coconut * [Coconut] Allergy (Verified 07/04/18 17:39) No Known Drug Allergies Allergy (Verified 07/04/18 17:39) Past Medical History - Social History Smoking Status: Never Smoker Family History: Reviewed & Not Pertinent, DM, Hypertension Patient has suicidal ideation: No Patient has homicidal ideation: No - Past Medical History Cardiac Medical History: Reports: Hx Hypertension Renal/ Medical History: Denies: Hx Peritoneal Dialysis Psychiatric Medical History: Reports: Hx Anxiety - Immunizations Immunizations up to date: Yes Hx Diphtheria, Pertussis, Tetanus Vaccination: Yes Review of Systems - Review of Systems Constitutional: See HPI EENT: No symptoms reported Cardiovascular: See HPI Respiratory: No symptoms reported Gastrointestinal: See HPI Genitourinary: See HPI Female Genitourinary: See HPI Musculoskeletal: No symptoms reported Skin: No symptoms reported Hematologic/Lymphatic: No symptoms reported Neurological/Psychological: No symptoms reported Physical Exam - Vital signs Vitals: Temp Pulse Resp BP Pulse Ox 98.3 F 85 16 120/76 100 07/04/18 17:44 07/04/18 17:44 07/04/18 17:44 07/04/18 17:44 07/04/18 17:44 Course - Vital Signs Vital signs: Temp Pulse Resp BP Pulse Ox 98.3 F 85 16 120/76 100 07/04/18 17:44 07/04/18 17:44 07/04/18 17:44 07/04/18 17:44 07/04/18 17:44 - Laboratory Result Diagrams: 07/04/18 18:30 07/04/18 18:30 Laboratory results interpreted by me: 07/04/18 07/04/18 07/04/18 18:30 18:30 18:30 WBC 11.7 H RBC 3.59 L Hgb 10.8 L Hct 31.7 L Seg Neutrophils % 90.3 H Lymphocytes % 7.3 L Monocytes % 2.2 L Absolute Neutrophils 10.5 H Sodium 135.6 L Chloride 108 H Carbon Dioxide 21 L Alkaline Phosphatase 212 H Total Protein 6.2 L Albumin 3.3 L Ur Leukocyte Esterase LARGE H Discharge - Discharge Clinical Impression: Nausea and vomiting during Disposition: ELOPED Referrals: JAMISON RICHARD MD [Primary Care Provider] - Follow up as needed
== END 2018-07-04 22:20 | disposition left against medical advice (07) ==
LOC: ER 17:37
DX: O21.9 Vomiting of pregnancy, unspecified (principal); F41.9 Anxiety disorder, unspecified
CPT/HCPCS: 99281; 96361; 96374; 36415; 87086; 83690; 85025; 80053; 81001; J2405; J7030

== ENCOUNTER 2018-07-16 00:14 | Outpatient (CLI) | payer MEDICAID ==
[2018-07-16 00:49] LABS: APPEARANCE,URINE SLIGHTLY-CLOUDY; BILIRUBIN,URINE NEGATIVE (NEGATIVE); COLOR,URINE STRAW; GLUCOSE, URINE NEGATIVE (NEGATIVE); KETONES,URINE NEGATIVE (NEGATIVE); LEUKOCYTE ESTERASE,URINE MODERATE (NEGATIVE); NITRITE,URINE NEGATIVE (NEGATIVE); PROTEIN,URINE NEGATIVE (NEGATIVE); URINE SPECIFIC GRAVITY 1.006; UROBILINOGEN,URINE NEGATIVE mg/dL (<2.0)
[2018-07-16 01:26] LABS: URINE AMPHETAMINES SCREEN NEGATIVE; URINE BARBITURATES SCREEN NEGATIVE; URINE BENZODIAZEPINES SCREEN NEGATIVE; URINE COCAINE SCREEN NEGATIVE; URINE MARIJUANA (THC) SCREEN NEGATIVE; URINE METHADONE SCREEN NEGATIVE; URINE PHENCYCLIDINE SCREEN NEGATIVE
--- NOTE | 2018-07-16 02:56 | Non Stress Test Report ---
Non Stress Test Datetime Report Generated by CPN: 07/16/2018 02:56 DEMOGRAPHIC EGA NST: 38.1 INDICATION Indication for Study: Ordered by Provider MONITORING Monitor Explained: Monitor Explained; Test Explained; Patient Verbalized Understanding Time on Monitor: 07/16/2018 00:53 Time off Monitor: 07/16/2018 01:36 NST Duration: 43 NST INTERVENTIONS NST Interventions: PO Hydration; Reposition Patient Physician Notified NST: Dr. Morris BABY A: [id number] BABY A Movement : Present Contraction Frequency : 3-11 FHR Baseline : 130 Accelerations : 15X15 Decelerations : None Variability : Moderate 6-25bpm NST Review: Meets Criteria for Reactive NST NST Review and Verified By : Aravind Hartley RN Results: Reactive NST REPORT Report Trigger: Send Report
== END 2018-07-16 02:55 | disposition home or self-care (01) ==
LOC: LC 00:14
PROVIDERS: ATTEND Physician Assistant
PROC: 4A1HXCZ Monitoring of Products of Conception, Cardiac Rate, External Approach (ICD-10-PCS; principal; 2018-07-16)
DX: O47.1 False labor at or after 37 completed weeks of gestation (principal); Z3A.38 38 weeks gestation of pregnancy
CPT/HCPCS: 59025; 80307; 81005; 84112

== ENCOUNTER 2018-08-02 06:32 | Inpatient (IN) | payer MEDICAID ==
[2018-08-02] MEDS ORDERED: RINGERS SOLUTION,LACTATED 1,000 ML IV ONE (06:34)
[2018-08-02] MEDS ORDERED: RINGERS SOLUTION,LACTATED 300 ML IV ONE (06:34)
[2018-08-02] MEDS ORDERED: PENICILLIN G POTASSIUM 5,000,000 UNIT in DEXTROSE 5%-WATER 100 ML IV ONE (06:34)
[2018-08-02] MEDS ORDERED: OXYTOCIN/NORMAL SALINE 20 UNIT/1,000 ML RTUINJ IV PRN ×2 (06:34→20:00)
[2018-08-02] MEDS ORDERED: RINGERS SOLUTION,LACTATED 1,000 ML IV PRN ×2 (06:34)
[2018-08-02 07:44] LABS: ABSOLUTE EOSINOPHILS # (AUTO) 0.1 10^3/uL (0.0-0.6); ABSOLUTE LYMPHOCYTES (AUTO) 1.7 10^3/uL (0.5-4.7); ABSOLUTE MONOCYTES (AUTO) 0.5 10^3/uL (0.1-1.4); ABSOLUTE NEUT (AUTO) 4.7 10^3/uL (1.7-8.2); BASOPHILS % (AUTO) 0.3 % (0-2); EOSINOPHILS % (AUTO) 1.2 % (0-6); HEMATOCRIT 27.5 % (36.0-47.0); HEMOGLOBIN 9.2 g/dL (12.0-15.5); MEAN CORPUSCULAR HEMOGLOBIN 29.3 pg (27.0-33.4); MEAN CORPUSCULAR HGB CONC 33.5 g/dL (32.0-36.0); MEAN CORPUSCULAR VOLUME 88 fl (80-97); MONOCYTES % (AUTO) 7.7 % (3-13); PLATELET COUNT 158 10^3/uL (150-450); RED BLOOD COUNT 3.14 10^6/uL (3.72-5.28); RED CELL DISTRIBUTION WIDTH 13.6 % (11.5-14.0); SEGMENTED NEUTROPHILS % (AUTO) 66.8 % (42-78); TOTAL CELLS COUNTED % (AUTO) 100 %
[2018-08-02 07:59] LABS: APPEARANCE,URINE SLIGHTLY-CLOUDY; BILIRUBIN,URINE NEGATIVE (NEGATIVE); COLOR,URINE YELLOW; GLUCOSE, URINE NEGATIVE (NEGATIVE); KETONES,URINE NEGATIVE (NEGATIVE); LEUKOCYTE ESTERASE,URINE LARGE (NEGATIVE); NITRITE,URINE NEGATIVE (NEGATIVE); PROTEIN,URINE NEGATIVE (NEGATIVE); URINE SPECIFIC GRAVITY 1.025; UROBILINOGEN,URINE NEGATIVE mg/dL (<2.0)
[2018-08-02 08:24] LABS: URINE AMPHETAMINES SCREEN NEGATIVE; URINE BARBITURATES SCREEN NEGATIVE; URINE BENZODIAZEPINES SCREEN NEGATIVE; URINE COCAINE SCREEN NEGATIVE; URINE METHADONE SCREEN NEGATIVE; URINE PHENCYCLIDINE SCREEN NEGATIVE
[2018-08-02] MEDS ORDERED: OXYTOCIN/NORMAL SALINE 20 UNIT/1,000 ML RTUINJ ONE (08:29)
[2018-08-02] MEDS ORDERED: OXYTOCIN 10 UNIT/ML VIAL ONE (08:29)
[2018-08-02] MEDS ORDERED: LIDOCAINE 1% INJ-PF (10 MG/ML) 30 ML SDV ONE (08:29)
[2018-08-02] MEDS ORDERED: MISOPROSTOL 0.2 MG TABLET ONE (08:29)
[2018-08-02] MEDS ORDERED: PENICILLIN G-K 5 MILLION UNIT VIAL ONE ×3 (08:30→17:46)
[2018-08-02 08:31] LABS: URINE MARIJUANA (THC) SCREEN UNCONFIRMED POSITIVE
--- NOTE | 2018-08-02 09:50 | Admission Physical ---
Datetime Report Generated by CPN: 08/02/2018 09:50 CURRENT ADMISSION Hx Assessment: The History has been Reviewed and is Current Chief Complaint: Scheduled Induction of Labor Indication for Induction: IUGR Admit Impression : Postterm, Intrauterine Admit Plan: Admit to Unit; Initiate Labor Induction Protocol ALLERGIES Medication Allergies: No Medication Allergies: Coconut * (08/02/2018); No Known Drug Allergies (08/02/2018) Latex: No Latex Allergies OBSTETRICAL HISTORY EDC: 07/29/2018 00:00 : 3 Para: 0 Term: 0 : 0 SAB: 2 IAB: 0 Ectopic: 0 Livin Cesareans: 0 Multiple Births: 0 Gestational Diabetes: No Rh Sensitization: No Incompetent Cervix: No ITA: No Infertility: No ART Treatment: No Uterine Anomaly: No IUGR: No Hx Previous C/S: No Macrosomia: No Hx Loss/Stillborn: No PIH: No Hx : No Placenta Previa/Abruption: No Depression/PP Depression: No PTL/PROM: No Post Hemorrhage: No Current Procedures: Ultrasound; NST Obstetrical History Comments: G1- SAB G2- SAB G3- current SEE RECORDS Alcohol: No Marijuana : No Cocaine: No Other Illicit Drugs: No Cigarettes: Never Smoker. [id number] MEDICAL HISTORY Diabetes: No Blood Transfusion: No Pulmonary Disease (Asthma, TB): No Breast Disease: No Hypertension: No Client Experience Administrator Surgery: No Heart Disease: No Hosp/Surgery: No Autoimmune Disorder: No Anesthetic Complications: No Kidney Disease: Yes Abnormal Pap Smear: No Neuro/Epilepsy: No Psychiatric Disorders: No Other Medical Diseases: No Hepatitis/Liver Disease: No Significant Family History: No Varicosities/Phlebitis: No Trauma/Violence : No Thyroid Dysfunction: No Medical History Comments: frequent UTIs INFECTIOUS HISTORY Gonorrhea: Yes Genital Herpes: No Chlamydia: Yes Tuberculosis: No Syphilis: No Hepatitis: No HIV/AIDS Exposure: No Rash or Viral Illness: No HPV: No Infectious History Comments: Chlam _ Gonorrhea 2017- [facility]ER[facility] 07/06/18 PHYSICAL EXAM General: Normal Heart: Normal Lungs: Normal Abdomen: Normal Extremities: Normal Physical Exam Comments: cervical exam by A.Anguiano CNShikha 30 Vital Signs: Reviewed; Within Normal Limits VAGINAL EXAM Dilatation: 3 Effacement: 75 Station: -2 Contraction Comments: 2-6 MEMBRANES Membranes: Intact FETUS A EGA: 40.4 Monitoring: External US FHR Category: Category I Presentation: Vertex Admit Comment: 23yo @ 40w4d A pos, Rubella Immune, GBS positive. Presented to L_D earlier this AM for IOL secondary to IUGR. Pt was admitted by night crew and pitocin has been started and now at 2mu/min and penicillin for GBS prophylaxis was also started. Plan is to continue pitocin, anticipate delivery. Dr. Duran is the MEDICAL CENTER DIRECTOR application developer manager today and aware of pt. and plan. INFORMED CONSENT Assignment: Narda Duran MD Signature: with User ID: [email or web address] : with User ID: [email or web address]
[2018-08-02] MEDS: PENICILLIN G POTASSIUM 2,500,000 UNIT in DEXTROSE 5%-WATER 50 ML IV SCH ×3 (12:52→22:31)
[2018-08-02] MEDS ORDERED: LIDOCAINE 1.5%/EPINEPHRINE INJ 5 ML AMP ONE (15:09)
[2018-08-02] MEDS ORDERED: BUPIVACAINE HCL 0.25 % INJ/PF (2.5 MG/1 ML) 30 ML VIAL ONE (15:09)
[2018-08-02] MEDS ORDERED: EPHEDRINE SULFATE INJ 50 MG/1 ML AMPULE ONE (15:09)
[2018-08-02] MEDS ORDERED: FENTANYL/BUPIVACAINE/NS/PF 300 MCG/150 ML RTUINJ EPI ONE (15:09)
[2018-08-02] MEDS ORDERED: ONDANSETRON HCL INJ/PF 4 MG/2 ML SDV ONE (18:44)
[2018-08-02] MEDS ORDERED: ONDANSETRON HCL INJ/PF 4 MG/2 ML SDV IV ONE (18:46)
[2018-08-02] MEDS ORDERED: ACETAMINOPHEN WITH CODEINE #3 TABLET PO PRN ×2 (20:00)
[2018-08-02] MEDS ORDERED: DIPH/PERTUSS(ACELL)/TETANUS VAC/PF 0.5 ML SYR (>=10YO) IM PRN (20:00)
[2018-08-02] MEDS ORDERED: ACETAMINOPHEN 325 MG TABLET PO PRN (20:00)
[2018-08-02] MEDS ORDERED: GLYCERIN/WITCH HAZEL LEAF 1 EACH MED..WIPE TP PRN (20:00)
[2018-08-02] MEDS ORDERED: NA PHOS,M-B/NA PHOS,DI-BA (ADULT) 133 ML ENEMA PR PRN (20:00)
[2018-08-02] MEDS ORDERED: PROMETHAZINE HCL INJ 25 MG/1 ML VIAL IV PRN (20:00)
[2018-08-02] MEDS ORDERED: MAGNESIUM HYDROXIDE SUSP 30 ML UDCUP PO PRN (20:00)
[2018-08-02] MEDS ORDERED: BENZOCAINE/MENTHOL AEROSOL SPRAY 56 ML TOP PRN (20:00)
[2018-08-02] MEDS ORDERED: ZOLPIDEM TARTRATE 5 MG TABLET PO PRN (20:00)
[2018-08-02] MEDS ORDERED: DIPHENHYDRAMINE HCL 25 MG CAPSULE PO PRN (20:00)
[2018-08-02] MEDS ORDERED: PSEUDOEPHEDRINE HCL 30 MG TABLET PO PRN (20:00)
[2018-08-02] MEDS ORDERED: PROMETHAZINE HCL 25 MG SUPP.RECT PR PRN (20:00)
[2018-08-02] MEDS ORDERED: DIBUCAINE 1% OINTMENT 56 GM TP PRN (20:00)
[2018-08-02] MEDS ORDERED: MEASLES,MUMPS&RUBELLA VACC/PF 0.5 ML VIAL SUBCUT PRN (20:00)
[2018-08-02] MEDS ORDERED: PROMETHAZINE HCL 25 MG TABLET PO PRN (20:00)
[2018-08-02] MEDS ORDERED: IBUPROFEN 800 MG TABLET ONE (21:11)
[2018-08-02] MEDS: IBUPROFEN 800 MG TABLET PO SCH (21:13)
[2018-08-02] MEDS: FAMOTIDINE 20 MG TABLET PO SCH (23:11)
[2018-08-03] MEDS: IBUPROFEN 800 MG TABLET PO SCH ×3 (05:20→22:34)
[2018-08-03 07:02] LABS: HEMATOCRIT 24.3 % (36.0-47.0); HEMOGLOBIN 8.2 g/dL (12.0-15.5); MEAN CORPUSCULAR HEMOGLOBIN 29.3 pg (27.0-33.4); MEAN CORPUSCULAR HGB CONC 33.7 g/dL (32.0-36.0); MEAN CORPUSCULAR VOLUME 87 fl (80-97); PLATELET COUNT 144 10^3/uL (150-450); RED BLOOD COUNT 2.79 10^6/uL (3.72-5.28); RED CELL DISTRIBUTION WIDTH 13.6 % (11.5-14.0); WHITE BLOOD COUNT 10.8 10^3/uL (4.0-10.5)
--- NOTE | 2018-08-03 10:28 | PDOC PROGRESS REPORT ---
Subjective-OB Progress Note for:: 08/03/18 - PP Day #1, doing well, no complaints, A+, Rubella Immune, +THC this hospital admission. Physical Exam (OB) Vital Signs: Temp Pulse Resp BP Pulse Ox 97.9 F 58 L 15 120/52 L 100 08/03/18 07:46 08/03/18 07:46 08/03/18 07:46 08/03/18 07:46 08/03/18 07:46 Intake & Output 08/02/18 08/03/18 08/04/18 06:59 06:59 06:59 Intake Total 50 480 Balance 50 480 Weight 72.7 kg - General General Appearance: Appears well, Alert In distress: None - Lochia Lochia Amount: Small 10-25 ml Lochia Color: Rubra/Red - Abdomen Description: Soft, Round Hernia Present: No Fundal Description: Firm, Midline Fundal Height: u/u - u/2 - Respiratory Respiratory Status: No respiratory distress - Abdominal Distension: No distension - Genitourinary Genitourinary Note: voiding - Extremities Upper extremity: Normal inspection Lower extremities: Normal inspection - Neurological Cognition: Normal Orientation: AAOx4 - Psychological Associated symptoms: Normal affect, Normal mood - Skin Skin Temperature: Warm Skin Moisture: Dry Objective-Diagnostic Laboratory: 08/03/18 06:40 08/03/18 06:40 WBC 10.8 H RBC 2.79 L Hgb 8.2 L Hct 24.3 L MCV 87 MCH 29.3 MCHC 33.7 RDW 13.6 Plt Count 144 L Assessment and Plan(PN) - Assessment and Plan (1) Cannabis abuse Is this a current diagnosis for this admission?: Yes (2) Carrier of group B Streptococcus Is this a current diagnosis for this admission?: Yes (3) Intrauterine growth restriction (IUGR) affecting care of mother, third trimester, single gestation Is this a current diagnosis for this admission?: Yes (4) Iron deficiency anemia during Is this a current diagnosis for this admission?: Yes (5) Obstetric labial laceration, delivered, current hospitalization Is this a current diagnosis for this admission?: Yes - Time Spent with Patient Time with patient: Less than 15 minutes Medications reviewed and adjusted accordingly: Yes - Disposition Anticipated Discharge: Home
[2018-08-03] MEDS: FERROUS SULFATE 325 MG TABLET PO SCH ×2 (11:09→18:00)
[2018-08-03] MEDS: FAMOTIDINE 20 MG TABLET PO SCH ×2 (11:09→22:34)
[2018-08-03] MEDS: SENNOSIDES/DOCUSATE 8.6-50 MG 1 EACH TABLET PO SCH (11:09)
[2018-08-03] MEDS: DOCUSATE SODIUM 100 MG CAPSULE PO SCH ×2 (11:09→18:00)
[2018-08-03] MEDS: PRENATAL VITAMIN W DHA CAPSULE PO SCH (11:10)
[2018-08-04] MEDS: IBUPROFEN 800 MG TABLET PO SCH (05:08)
[2018-08-04 09:00] VITALS: BP 121/75
[2018-08-04] MEDS ORDERED: MEDROXYPROGESTERONE ACET INJ 150 MG/1 ML VIAL IM ONE (09:35)
--- NOTE | 2018-08-04 09:38 | PDOC PROGRESS REPORT ---
Subjective-OB Progress Note for:: 08/04/18 Subjective: Doing well, holding baby, ready to go home, has help at home, scant lochia Physical Exam (OB) Vital Signs: Temp Pulse Resp BP Pulse Ox 97.9 F 66 15 121/75 100 08/04/18 08:27 08/04/18 08:27 08/04/18 08:27 08/04/18 08:27 08/04/18 08:27 Intake & Output 08/03/18 08/04/18 08/05/18 06:59 06:59 06:59 Intake Total 50 720 Balance 50 720 - PIH/Pre-Eclampsia Clonus: Negative Headache: Absent Epigastric Pain: No Visual Changes: No - Lochia Lochia Amount: Small 10-25 ml Lochia Color: Rubra/Red - Abdomen Description: Soft, Round Hernia Present: No Fundal Description: Firm, Midline Fundal Height: u/u - u/2 Objective-Diagnostic Laboratory: 08/03/18 06:40 Assessment and Plan(PN) - Assessment and Plan (1) Cannabis abuse Is this a current diagnosis for this admission?: Yes (2) Carrier of group B Streptococcus Is this a current diagnosis for this admission?: Yes (3) Intrauterine growth restriction (IUGR) affecting care of mother, third trimester, single gestation Is this a current diagnosis for this admission?: Yes (4) Iron deficiency anemia during Is this a current diagnosis for this admission?: Yes (5) Obstetric labial laceration, delivered, current hospitalization Is this a current diagnosis for this admission?: Yes - Time Spent with Patient Time with patient: Less than 15 minutes Medications reviewed and adjusted accordingly: Yes - Disposition Anticipated Discharge: Home Within: within 24 hours
--- NOTE | 2018-08-04 09:43 | PDOC DISCHARGE SUMMARY ---
Final Diagnosis Discharge Date: 08/04/18 - Final Diagnosis (1) Cannabis abuse Is this a current diagnosis for this admission?: Yes (2) Carrier of group B Streptococcus Is this a current diagnosis for this admission?: Yes (3) Intrauterine growth restriction (IUGR) affecting care of mother, third trimester, single gestation Is this a current diagnosis for this admission?: Yes (4) Iron deficiency anemia during Is this a current diagnosis for this admission?: Yes (5) Obstetric labial laceration, delivered, current hospitalization Is this a current diagnosis for this admission?: Yes Discharge Data - Discharge Medication Home Medications: 95/Iron Fum/Folic/Dha [ + Dha Combo Pack] 1 tab PO DAILY 08/02/18 Gestational Age: 40.3 Reason(s) for Admission: Induction of Labor, Group B Strep Positive Admission Note: IUGR Procedures: NST, Ultrasound Intrapartum Procedure(s): Spontaneous Vaginal Delivery Complication(s): Laceration-Labial Laceration-Degree: 1st - Data Baby 1 Male Home with Mother: Yes Complications: No - Diagnosis Test Laboratory: Temp Pulse Resp BP Pulse Ox 97.9 F 66 15 121/75 100 08/04/18 08:27 08/04/18 08:27 08/04/18 08:27 08/04/18 08:27 08/04/18 08:27 08/02/18 08/02/18 08/03/18 06:35 07:30 06:40 RBC 3.14 L 2.79 L Hgb 9.2 L 8.2 L Hct 27.5 L 24.3 L Urine Opiates Screen NEGATIVE - Discharge information/Instructions Discharge Activity: Activity As Tolerated, No Lifting Over 10 Pounds, No Lifting/Push/Pulling, Pelvic Rest Discharge Diet: As Tolerated, Regular Disposition: HOME, SELF-CARE Follow up with: [facility] in: 3, Weeks - no smoking around baby
[2018-08-04] MEDS: DOCUSATE SODIUM 100 MG CAPSULE PO SCH (10:49)
[2018-08-04] MEDS: PRENATAL VITAMIN W DHA CAPSULE PO SCH (10:49)
[2018-08-04] MEDS: FERROUS SULFATE 325 MG TABLET PO SCH (10:49)
[2018-08-04] MEDS: FAMOTIDINE 20 MG TABLET PO SCH (10:49)
[2018-08-04] MEDS: SENNOSIDES/DOCUSATE 8.6-50 MG 1 EACH TABLET PO SCH (10:49)
--- NOTE | 2018-08-09 09:45 | Delivery Summary ---
Del Sum A-C Datetime Report Generated by CPN: 08/09/2018 09:45 DELIVERY PERSONNEL DELIVERY PERSONNEL: [id number] Delivery Doctor:: Narda Duran MD Anesthesiologist:: Arian Logan MD Labor and Delivery Nurse:: Denisse Gandhi RN Labor and Delivery Nurse:: Fabi Giordano RN Bolting Machine Operator/CHARGING MACHINE OPERATOR: Mariely Helm, SHALE PLANER OPERATOR HELPER MATERNAL INFORMATION Delivery Anesthesia: Epidural Medications After Delivery: Pitocin Drip 20 Units/1000ml NSS Maternal Complications: Other Other Maternal Complications: Intrauterine growth restriction Provider Comments: VMI delivered in ANGEL presentation. Loose nuchal cord delivered through. Shoulders and body delivered without difficulty. Cord doubly clamped and cut and infant to maternal abdomen for NRP. Terminal meconium noted. Placenta delivered intact spontaneously. Uterine sweep performed and empty. right labial laceration repaired with good hemostasis. FF at U. Mother and baby stable upon provider leaving the room. LABOR SUMMARY EDC: 07/29/2018 00:00 No. Babies in Womb: 1 Labor Anesthesia: Epidural LABOR INFORMATION Reason for Induction: Intrauterine Growth Retardation Onset of Labor: 08/02/2018 14:42 Complete Dilatation: 08/02/2018 19:20 Oxytocin: Induction Group B Beta Strep: Postive Antibiotics # of Doses: 4 Antibiotics Time of Last Dose: 1752 Name of Antibiotic Given: penicilin Steroids Given: None Reason Steroids Not Administered: Not Applicable MEMBRANES Membranes Rupture Method: Artificial Rupture of Membranes: 08/02/2018 14:42 Length of Rupture (hr): 5.00 Amniotic Fluid Color: Clear Amniotic Fluid Amount: Scant Amniotic Fluid Odor: Normal STAGES OF LABOR Stage 1 hr: 4 Stage 1 min: 38 Stage 2 hr: 0 Stage 2 min: 22 Stage 3 hr: 0 Stage 3 min: 3 Total Time in Labor hr: 5 Total Time in Labor min: 3 VAGINAL DELIVERY Episiotomy: None Laceration #1: Vaginal Laceration Extension #1: N/A Other Laceration: right labial laceration Laceration Repair: Yes Laceration Repair Note: right labial laceration repaired in usual fashion. Good hemostasis Sponge Count Correct: Yes Sharps Count Correct: Yes CSECTION DELIVERY Primary Indication: N/A Secondary Indication: N/A CSection Incision: N/A BABY A INFORMATION Delivery Date/Time: 08/02/2018 19:42 Method of Delivery: Vaginal Born in Route : No : N/A Forceps: N/A Vacuum Extraction: N/A PRESENTATION/POSITION BABY A Presentation: Cephalic Presentation: Cephalic Cephalic Presentation: Vertex Vertex Position: Left Occipital Anterior Breech Presentation: N/A PLACENTA INFORMATION BABY A Placenta Delivery Time : 08/02/2018 19:45 Placenta Method of Delivery: Spontaneous Placenta Method of Delivery: Spontaneous Placenta Status: Delivered SCORES BABY A Heart Rate 1 min: >100 bpm Resp Effort 1 min: Good Cry Reflex Irritability 1 min: Cough or Sneeze or Pulls Away Muscle Tone 1 min: Active Motion Color 1 min: Blue/Pale Resuscitation Effort 1 min: Tactile Stimulation SCORE 1 MIN: 8 Heart Rate 5 min: >100 bpm Resp Effort 5 min: Good Cry Reflex Irritability 5 min: Cough or Sneeze or Pulls Away Color 5 min: Body [place], Extremities Blue Resuscitation Effort 5 min: Tactile Stimulation INFANT INFORMATION BABY A Sex: Male IDENTIFICATION BABY A Infant Verification Date/Time: 08/02/2018 21:41 ID Band Number: [id number] Mother's Name Verified: Yes Infant RN Verifying : C. Gentilin, RN. E. Jilek, RN WEIGHT/LENGTH BABY A Infant Birthweight (gm): 2865 Infant Weight (lb): 6 Infant Weight (oz): 5 Length (in): 20.00 Infant Length (cm): 50.80 CORD INFORMATION BABY A No. Cord Vessels: 3 Nuchal Cord : N/A Cord Blood Taken: Yes-For Storage (Mom's Blood type +) Infant Suction: None ASSESSMENT BABY A Skin to Skin: Yes Skin to Skin: Yes SIGNATURES Signature: with User ID: [email or web address]
== END 2018-08-04 14:48 | disposition home or self-care (01) | DRG 806 ==
LOC: LR 06:32 → 2S 21:53
PROVIDERS: ADMIT Obstetrics & Gynecology Gynecology; ATTEND Obstetrics & Gynecology Gynecology
PROC: 10E0XZZ Delivery of Products of Conception, External Approach (ICD-10-PCS; principal; 2018-08-02)
PROC: 0UQMXZZ Repair Vulva, External Approach (ICD-10-PCS; 2018-08-02)
PROC: 10907ZC Drainage of Amniotic Fluid, Therapeutic from Products of Conception, Via Natural or Artificial Opening (ICD-10-PCS; 2018-08-02)
PROC: 4A1HXCZ Monitoring of Products of Conception, Cardiac Rate, External Approach (ICD-10-PCS; 2018-08-02)
DX: O36.5930 Maternal care for other known or suspected poor fetal growth, third trimester, not applicable or unspecified (principal); O99.323 Drug use complicating pregnancy, third trimester; Z37.0 Single live birth; F12.10 Cannabis abuse, uncomplicated; O99.824 Streptococcus B carrier state complicating childbirth; O99.02 Anemia complicating childbirth; D50.8 Other iron deficiency anemias; O70.0 First degree perineal laceration during delivery; O48.0 Post-term pregnancy; O69.81X0 Labor and delivery complicated by cord around neck, without compression, not applicable or unspecified; Z91.018 Allergy to other foods; Z3A.40 40 weeks gestation of pregnancy
CPT/HCPCS: 36415; 80307; 80349; 81005; 85025; 85027; 86592; 86850; 86900; 86901; 88307; G0480; J1050; J2405; J2540; J2590; J3010; J3490

== ENCOUNTER 2019-01-20 21:00 | Emergency (ER) | payer SELFPAY ==
--- NOTE | 2019-01-20 21:29 | ER Document Report ---
ED Medical Screen (RME) - General Chief Complaint: Vomiting Stated Complaint: VOMITING/HEADACHE Time Seen by Provider: 01/20/19 21:26 Primary Care Provider: CHELA ANTONIO CNM [Primary Care Provider] - Follow up as needed Mode of Arrival: Ambulatory Information source: Patient Notes: 23-year-old female presents to ED for complaint of nausea vomiting headache and pressure and frequency with urination. She is breast-feeding a 5-month-old. She has not had a cycle since she had her child. She states she does not smoke drink or use any illicit drugs. She states she is having migraines about 4 times a week for the last month. She states she is been having nausea and vomiting for about a week. And the pain with urination with frequency has been about a week. We will get blood urine and have evaluated by another provider. We will treat with Motrin and Zofran while awaiting her test results. I have greeted and performed a rapid initial assessment of this patient. A comprehensive ED assessment and evaluation of the patient, analysis of test results and completion of medical decision making process will be conducted by an additional ED providers. TRAVEL OUTSIDE OF THE [place] IN LAST 30 DAYS: No - Related Data Allergies/Adverse Reactions: Coconut * [Coconut] Allergy (Verified 08/02/18 06:47) No Known Drug Allergies Allergy (Verified 08/02/18 06:47) Past Medical History - Past Medical History Cardiac Medical History: Reports: Hx Hypertension Renal/ Medical History: Denies: Hx Peritoneal Dialysis Psychiatric Medical History: Reports: Hx Anxiety - Immunizations Immunizations up to date: Yes Hx Diphtheria, Pertussis, Tetanus Vaccination: Yes Physical Exam - Vital signs Vitals: Temp Pulse Resp BP Pulse Ox 97.3 F 92 18 116/82 97 01/20/19 21:05 01/20/19 21:05 01/20/19 21:05 01/20/19 21:05 01/20/19 21:05 Course - Vital Signs Vital signs: Temp Pulse Resp BP Pulse Ox 97.3 F 92 18 116/82 97 01/20/19 21:05 01/20/19 21:05 01/20/19 21:05 01/20/19 21:05 01/20/19 21:05 Doctor's Discharge - Discharge Referrals: PACO,CHELA, CNM [Primary Care Provider] - Follow up as needed
[2019-01-20] MEDS ORDERED: ONDANSETRON 4 MG TAB.RAPDIS PO ONE (21:30)
[2019-01-20] MEDS ORDERED: IBUPROFEN 600 MG TABLET PO ONE (21:30)
[2019-01-20 22:24] LABS: ABSOLUTE EOSINOPHILS # (AUTO) 0.1 10^3/uL (0.0-0.6); ABSOLUTE LYMPHOCYTES (AUTO) 2.5 10^3/uL (0.5-4.7); ABSOLUTE MONOCYTES (AUTO) 0.4 10^3/uL (0.1-1.4); ABSOLUTE NEUT (AUTO) 3.2 10^3/uL (1.7-8.2); BASOPHILS % (AUTO) 0.3 % (0-2); EOSINOPHILS % (AUTO) 1.5 % (0-6); HEMATOCRIT 38.8 % (36.0-47.0); HEMOGLOBIN 13.1 g/dL (12.0-15.5); LYMPHOCYTES % (AUTO) 40.3 % (13-45); MEAN CORPUSCULAR HEMOGLOBIN 29.4 pg (27.0-33.4); MEAN CORPUSCULAR HGB CONC 33.8 g/dL (32.0-36.0); MEAN CORPUSCULAR VOLUME 87 fl (80-97); MONOCYTES % (AUTO) 6.4 % (3-13); PLATELET COUNT 254 10^3/uL (150-450); RED BLOOD COUNT 4.46 10^6/uL (3.72-5.28); RED CELL DISTRIBUTION WIDTH 13.7 % (11.5-14.0); SEGMENTED NEUTROPHILS % (AUTO) 51.5 % (42-78); TOTAL CELLS COUNTED % (AUTO) 100 %; WHITE BLOOD COUNT 6.2 10^3/uL (4.0-10.5)
[2019-01-20 22:32] LABS: APPEARANCE,URINE CLOUDY; BILIRUBIN,URINE NEGATIVE (NEGATIVE); COLOR,URINE YELLOW; GLUCOSE, URINE NEGATIVE (NEGATIVE); KETONES,URINE NEGATIVE (NEGATIVE); LEUKOCYTE ESTERASE,URINE LARGE (NEGATIVE); NITRITE,URINE NEGATIVE (NEGATIVE); PROTEIN,URINE 100 mg/dL (NEGATIVE); URINE SPECIFIC GRAVITY 1.019; UROBILINOGEN,URINE NEGATIVE mg/dL (<2.0)
[2019-01-20] MEDS ORDERED: METOCLOPRAMIDE HCL INJ/PF 10 MG/2 ML SDV IV ONE (23:06)
[2019-01-20 23:10] LABS: ALBUMIN 4.3 g/dL (3.5-5.0); ALKALINE PHOSPHATASE 92 U/L (38-126); ANION GAP 12 (5-19); ASPARTATE AMINO TRANSFERASE 28 U/L (14-36); BILIRUBIN,TOTAL 0.7 mg/dL (0.2-1.3); BLOOD UREA NITROGEN 11 mg/dL (7-20); CALCIUM 9.8 mg/dL (8.4-10.2); CARBON DIOXIDE 22 mmol/L (22-30); CHLORIDE 107 mmol/L (98-107); GLUCOSE 113 mg/dL (75-110); POTASSIUM 4.4 mmol/L (3.6-5.0); TOTAL PROTEIN 7.9 g/dL (6.3-8.2)
--- NOTE | 2019-01-20 23:28 | ER Document Report ---
ED Headache - General Chief Complaint: Abdominal Pain Stated Complaint: VOMITING/HEADACHE Time Seen by Provider: 01/20/19 21:26 Primary Care Provider: CHELA ANTONIO CNM [CERTIFIED NURSE DIVER ASSISTANT] - Follow up as needed Mode of Arrival: Ambulatory TRAVEL OUTSIDE OF THE [place] IN LAST 30 DAYS: No - HPI Patient complains to provider of: "Migraine". No: Headache, Facial pain, Other Patient reports: No: Brain neoplasm, Congenital anomally, Frequent migraines, Hx chronic headaches, Occasional migraines, Prior CVA, Prior hemorrhage, Prior neurologic eval, Prior TBI, DIGITAL ARCHIVIST Shunt, Other Onset: This morning Onset was: Gradual Timing: Still present Quality of pain: Achy, Throbbing. denies: No pain, Burning, Cramping, Dull, Fullness, Pressure, Sharp, Stabbing, Other Severity: Mild Pain Level: 1 Preceding symptoms: denies: Typical of prior aura(s), Visual disturbance, Other Associated symptoms: Nausea/vomiting. denies: None, Chills, Confusion, Dizzy, Double/blurred vision, Fainting, Fever, Lightheaded, Memory loss, Motion sickness, Motor/sensory loss to arm, Motor/sensory loss to leg, Neck pain, Photophobia, Speech problems, Stiff neck, Sweaty, Tingling/numb sensation, Trouble walking, Other Exacerbated by: Light, Noise, Movement - Related Data Allergies/Adverse Reactions: Coconut * [Coconut] Allergy (Verified 08/02/18 06:47) No Known Drug Allergies Allergy (Verified 08/02/18 06:47) Past Medical History - General Information source: Patient - Social History Smoking Status: Never Smoker Chew tobacco use (# tins/day): No Frequency of alcohol use: None Family History: Reviewed & Not Pertinent, DM, Hypertension Patient has suicidal ideation: No Patient has homicidal ideation: No - Past Medical History Cardiac Medical History: Reports: Hx Hypertension Renal/ Medical History: Denies: Hx Peritoneal Dialysis Psychiatric Medical History: Reports: Hx Anxiety - Immunizations Immunizations up to date: Yes Hx Diphtheria, Pertussis, Tetanus Vaccination: Yes Review of Systems - Review of Systems -: Yes ROS unobtainable due to patient's medical condition Constitutional: denies: No symptoms reported, See HPI, Chills, Diaphoresis, Fever, Malaise, Weakness, Other, Weight gain, Weight loss, Recent illness EENT: denies: No symptoms reported, See HPI, Eye pain, Eye discharge, Blurred vision, Tearing, Double vision, Ear pain, Ear discharge, Nose pain, Nose congestion, Nose discharge, Sinus pressure, Sinus discharge, Throat pain, Difficulty swallowing, Throat swelling, Mouth pain, Mouth swelling, Dental problem, Vertigo, Other Cardiovascular: denies: No symptoms reported, See HPI, Chest pain, Palpitations, Heart racing, Orthopnea, Dyspnea, Syncope, Dizziness, Lightheaded, Edema, Other, Paroxysmal Nocturnal Dysp Respiratory: denies: No symptoms reported, See HPI, Cough, Hurts to breathe, Hemoptysis, Short of breath, Sputum, Stridor, Wheezing, Other Gastrointestinal: denies: No symptoms reported, See HPI, Abdomen distended, Abdominal pain, Diarrhea, Nausea, Constipation, Blood streaked bowels, Poor appetite, Poor fluid intake, Blood in vomit, Black stools, Rectal bleeding, Last bowel movement, Fecal incontinence, Other Genitourinary: denies: No symptoms reported, See HPI, Burning, Dysuria, Discharge, Frequency, Flank pain, Hematuria, Incontinence, Pain, Urgency, Retention, Other Neurological/Psychological: Headaches -: Yes All other systems reviewed and negative - Patient is breast-feeding Physical Exam - Vital signs Vitals: Temp Pulse Resp BP Pulse Ox 97.3 F 92 18 116/82 97 01/20/19 21:05 01/20/19 21:05 01/20/19 21:05 01/20/19 21:05 01/20/19 21:05 Notes: PHYSICAL EXAMINATION: GENERAL: Well-appearing, well-nourished and in no acute distress. HEAD: Atraumatic, normocephalic. EYES: Pupils equal round and reactive to light, extraocular movements intact, s clera anicteric, conjunctiva are normal. ENT: nares patent, oropharynx clear without exudates. Moist mucous membranes. NECK: Normal range of motion, supple without lymphadenopathy LUNGS: Breath sounds clear to auscultation bilaterally and equal. No wheezes rales or rhonchi. HEART: Regular rate and rhythm without murmurs ABDOMEN: Soft, nontender, normoactive bowel sounds. No guarding, no rebound. No masses appreciated. EXTREMITIES: Normal range of motion, no pitting or edema. No cyanosis. NEUROLOGICAL: No focal neurological deficits. Moves all extremities spontaneously and on command. PSYCH: Normal mood, normal affect. SKIN: Warm, Dry, normal turgor, no rashes or lesions noted. Course - Vital Signs Vital signs: Temp Pulse Resp BP Pulse Ox 97.3 F 92 18 116/82 97 01/20/19 21:05 01/20/19 21:05 01/20/19 21:05 01/20/19 21:05 01/20/19 21:05 - Laboratory Result Diagrams: 01/20/19 21:54 01/20/19 21:54 Laboratory results interpreted by me: 01/20/19 01/20/19 21:54 21:54 Glucose 113 H Urine Protein 100 H Ur Leukocyte Esterase LARGE H - Transfer of Care Notes: 01/21/19 01:07 Note patient patient feeling much better after the Reglan and I do feel this is a migraine. We will send her home with some Keflex for a urinary tract infection have her return if worse Discharge - Discharge Clinical Impression: Urinary tract infection Migraine headache Qualifiers: Migraine type: unspecified Status migrainosus presence: without status migrainosus Intractability: not intractable Qualified Code(s): G43.909 - Migraine, unspecified, not intractable, without status migrainosus Condition: Good Disposition: HOME, SELF-CARE Instructions: Cephalexin ([facility]), Urinary Tract Infection ([facility]), Migraine Headache ([facility]) Additional Instructions: Tylenol or Motrin for pain and Keflex for urinary tract infection return if worse Prescriptions: Cephalexin Monohydrate [Keflex 500 mg Capsule] 500 mg PO Q6H #20 capsule Referrals: CHEAL ANTONIO CNM [CERTIFIED NURSE DIVER ASSISTANT] - Follow up as needed
[2019-01-21] MEDS ORDERED: CEPHALEXIN 500 MG CAPSULE PO ONE (01:11)
[2019-01-21 01:39] VITALS: BP 122/59
== END 2019-01-21 01:39 | disposition home or self-care (01) ==
LOC: ER 21:00
DX: N39.0 Urinary tract infection, site not specified (principal); G43.909 Migraine, unspecified, not intractable, without status migrainosus; R10.9 Unspecified abdominal pain; R11.2 Nausea with vomiting, unspecified; I10 Essential (primary) hypertension
CPT/HCPCS: 36415; 84703; 85025; 80053; 81001; S0119; J2765; 96374; 99284

== ENCOUNTER 2019-05-07 23:54 | Emergency (ER) | payer SELFPAY ==
[2019-05-08 00:10] VITALS: BP 154/83
--- NOTE | 2019-05-08 00:34 | ER Document Report ---
ED Medical Screen (RME) - General Chief Complaint: Vaginal Bleeding Stated Complaint: VAGINAL BLEEDING/CRAMPS Time Seen by Provider: 05/08/19 00:30 Notes: 23-year-old female presents with increased vaginal bleeding for the past week. Patient states she is passing clots that are huge, biggest has been the size of a avocado. Patient also has some pelvic cramping. Patient does not know if she is . Nontoxic, well-appearing. I have greeted and performed a rapid initial assessment of this patient. A comprehensive ED assessment and evaluation of the patient, analysis of test results and completion of the medical decision making process with be conducted by additional ED providers. TRAVEL OUTSIDE OF THE [place] IN LAST 30 DAYS: No - Related Data Allergies/Adverse Reactions: Coconut * [Coconut] Allergy (Verified 08/02/18 06:47) No Known Drug Allergies Allergy (Verified 08/02/18 06:47) Past Medical History - Past Medical History Cardiac Medical History: Reports: Hx Hypertension Renal/ Medical History: Denies: Hx Peritoneal Dialysis Psychiatric Medical History: Reports: Hx Anxiety - Immunizations Immunizations up to date: Yes Hx Diphtheria, Pertussis, Tetanus Vaccination: Yes Physical Exam - Vital signs Vitals: Temp Pulse Resp BP Pulse Ox 98.1 F 93 18 154/83 H 99 05/08/19 00:09 05/08/19 00:09 05/08/19 00:09 05/08/19 00:09 05/08/19 00:09 Course - Vital Signs Vital signs: Temp Pulse Resp BP Pulse Ox 98.1 F 93 18 154/83 H 99 05/08/19 00:09 05/08/19 00:09 05/08/19 00:09 05/08/19 00:09 05/08/19 00:09
--- NOTE | 2019-05-08 01:44 | RADIOLOGY REPORT (SQ) ---
Ultrasound of the pelvis: 05/08/2019 12:41 AM SECURITIES ANALYST HISTORY: 23-year-old patient with heavy vaginal bleeding. TECHNIQUE: Multiple grayscale and color Doppler images of the pelvis were obtained transvaginally. COMPARISON: Pelvic ultrasound from 11/21/1917 FINDINGS: The uterus measures 8.5 x 4.9 x 4.2 cm. The endometrium measures 4-5 mm in thickness. There is some trace fluid seen at the endometrial canal. No myometrial mass is seen. Trace free intraperitoneal fluid is seen within the posterior cul-de-sac. The right ovary measures 2.9 x 2.2 x 2.1 cm. The left ovary measures 4.7 x 3.4 x 2.8 cm. There is a sonographically simple cyst at the left ovary measuring up to 3.4 cm. This likely represents a physiologic cyst. Some arterial waveforms were obtained from the right ovary. Venous waveforms are obtained from the left ovary. IMPRESSION: No acute sonographic abnormality is seen within the pelvis.
[2019-05-08 01:46] LABS: MEAN CORPUSCULAR VOLUME 86 fl (80-97)
[2019-05-08 01:51] LABS: ABSOLUTE EOSINOPHILS # (AUTO) 0.2 10^3/uL (0.0-0.6); ABSOLUTE LYMPHOCYTES (AUTO) 2.3 10^3/uL (0.5-4.7); ABSOLUTE MONOCYTES (AUTO) 0.5 10^3/uL (0.1-1.4); ABSOLUTE NEUT (AUTO) 3.4 10^3/uL (1.7-8.2); BASOPHILS % (AUTO) 0.3 % (0-2); EOSINOPHILS % (AUTO) 2.8 % (0-6); HEMATOCRIT 35.8 % (36.0-47.0); HEMOGLOBIN 12.2 g/dL (12.0-15.5); LYMPHOCYTES % (AUTO) 36.2 % (13-45); MEAN CORPUSCULAR HEMOGLOBIN 29.3 pg (27.0-33.4); MEAN CORPUSCULAR HGB CONC 34.1 g/dL (32.0-36.0); MONOCYTES % (AUTO) 7.2 % (3-13); PLATELET COUNT 195 10^3/uL (150-450); RED BLOOD COUNT 4.16 10^6/uL (3.72-5.28); RED CELL DISTRIBUTION WIDTH 13.4 % (11.5-14.0); SEGMENTED NEUTROPHILS % (AUTO) 53.5 % (42-78); TOTAL CELLS COUNTED % (AUTO) 100 %; WHITE BLOOD COUNT 6.3 10^3/uL (4.0-10.5)
[2019-05-08 02:09] LABS: ALBUMIN 4.1 g/dL (3.5-5.0); ALKALINE PHOSPHATASE 93 U/L (38-126); ANION GAP 11 (5-19); ASPARTATE AMINO TRANSFERASE 34 U/L (14-36); BILIRUBIN,DIRECT 0.2 mg/dL (0.0-0.4); BILIRUBIN,TOTAL 0.7 mg/dL (0.2-1.3); BLOOD UREA NITROGEN 12 mg/dL (7-20); CALCIUM 9.6 mg/dL (8.4-10.2); CARBON DIOXIDE 24 mmol/L (22-30); CHLORIDE 107 mmol/L (98-107); GLUCOSE 96 mg/dL (75-110); POTASSIUM 4.2 mmol/L (3.6-5.0); TOTAL PROTEIN 7.6 g/dL (6.3-8.2)
== END 2019-05-08 06:19 | disposition left against medical advice (07) ==
LOC: ER 23:54
DX: N93.8 Other specified abnormal uterine and vaginal bleeding (principal); R10.2 Pelvic and perineal pain; I10 Essential (primary) hypertension
CPT/HCPCS: 36415; 76830; 80053; 84702; 85025; 86900; 86901; 93976; 99281

== ENCOUNTER 2019-10-24 16:51 | Emergency (ER) | payer SELFPAY | END 2019-10-24 16:55 | disposition left against medical advice (07) | LOC: ER 16:51 | DX: Z53.20 Procedure and treatment not carried out because of patient's decision for unspecified reasons (principal); R11.0 Nausea ==

== ENCOUNTER 2020-01-27 14:56 | Emergency (ER) | payer SELFPAY ==
[2020-01-27] MEDS ORDERED: IBUPROFEN 800 MG TABLET PO ONE (15:18)
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
[2020-01-27 15:50] LABS: APPEARANCE,URINE SLIGHTLY-CLOUDY; BILIRUBIN,URINE NEGATIVE (NEGATIVE); COLOR,URINE YELLOW; GLUCOSE, URINE NEGATIVE (NEGATIVE); KETONES,URINE TRACE mg/dL (NEGATIVE); LEUKOCYTE ESTERASE,URINE SMALL (NEGATIVE); NITRITE,URINE NEGATIVE (NEGATIVE); PROTEIN,URINE NEGATIVE (NEGATIVE); URINE SPECIFIC GRAVITY 1.025; UROBILINOGEN,URINE NEGATIVE mg/dL (<2.0)
[2020-01-27 17:07] LABS: CHLAM PCR NOT DETECTED (NOT DETECT)
--- NOTE | 2020-01-27 19:35 | RADIOLOGY REPORT (SQ) ---
EXAM DESCRIPTION: U/S OB 14+ TRNABD 1GES W/O DOP IMAGES COMPLETED DATE/TIME: 01/27/2020 7:16 pm REASON FOR STUDY: low back pain COMPARISON: None. TECHNIQUE: Static and Dynamic grayscale imaging performed of gravid uterus using transabdominal appr oach. Additional selected color Doppler and spectral images recorded. All stored on PACS. LIMITATIONS: None. FINDINGS: FETUSES SEEN:1 EGA: 20 weeks 0 days Calculated using BPD,FL,HC,AC documented on images. No discrepancy with clinica l dates. ANDREW: 06/15/2020 EFW: 325+/- 48 grams LVP: 5.7 cm PLACENTA: Posterior PRESENTATION: Cephalic. CERVICAL LENGTH: 3.4 Closed. OTHER: No other significant finding. IMPRESSION: LIVING INTRAUTERINE . ESTIMATED GESTATIONAL AGE 20 weeks 0 days Adequate amniotic fluid. Trimester of : Second trimester - 13 weeks 1 day to 27 weeks 6 days. TECHNICAL DOCUMENTATION: JOB ID: [id number] 2010 [employer]- All Rights Reserved Reading location - IP/workstation name: [email or web address]
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
[2020-01-27 21:12] LABS: BACTERIA (WET MOUNT) 4+ BACTERIA SEEN; RBCS (WET MOUNT) FEW RBCS SEEN; T.VAGINALIS (WET MOUNT) NO TRICHOMONAS SEEN; WBCS (WET MOUNT) 3+ WBCS SEEN; YEAST (WET MOUNT) BUDDING YEAST SEEN
[2020-01-27 21:32] VITALS: BP 114/61
== END 2020-01-27 21:55 | disposition home or self-care (01) ==
LOC: ER 14:56
DX: O99.891 Other specified diseases and conditions complicating pregnancy (principal); M54.5 Low back pain; O26.892 Other specified pregnancy related conditions, second trimester; N89.8 Other specified noninflammatory disorders of vagina; O16.2 Unspecified maternal hypertension, second trimester; Z91.018 Allergy to other foods; Z3A.20 20 weeks gestation of pregnancy
CPT/HCPCS: 36415; 76805; 81001; 81025; 84702; 87086; 87210; 87491; 87591; 99284

== ENCOUNTER 2020-03-29 12:32 | Emergency (ER) | payer MEDICAID ==
--- NOTE | 2020-03-29 14:02 | ER Document Report ---
ED General - General Chief Complaint: Nausea/Vomiting Stated Complaint: NAUSEA VOMITTING Time Seen by Provider: 03/29/20 13:45 TRAVEL OUTSIDE OF THE [place] IN LAST 30 DAYS: No - HPI Notes: Chief complaint: Vomiting History of present illness: 24-year-old female 2 para 1 at about 24 weeks EGA followed by [facility] presents now for evaluation of multiple episodes of vomiting this morning. Patient says she was very hungry when she awakened and had some leftover food in the refrigerator that been there for several days. She says this tasted "bad" but she ate a lot of it because she was so hungry and did not have anything else at this time to fix quickly. She says she is vomited 10-12 times. She denies fever or chills. She is received IV fluids and Zofran per EMS and is feeling much better at this time with no further nausea vomiting. She says she is hungry and thirsty and would like to try something by mouth. - Related Data Allergies/Adverse Reactions: Coconut * [Coconut] Allergy (Verified 08/02/18 06:47) No Known Drug Allergies Allergy (Verified 08/02/18 06:47) Past Medical History - General Information source: Patient - Social History Smoking Status: Never Smoker Frequency of alcohol use: None Drug Abuse: None Lives with: Spouse/Significant other Family History: Reviewed & Not Pertinent, DM, Hypertension - Past Medical History Cardiac Medical History: Reports: Hx Hypertension Renal/ Medical History: Denies: Hx Peritoneal Dialysis Psychiatric Medical History: Reports: Hx Anxiety - Immunizations Immunizations up to date: Yes Hx Diphtheria, Pertussis, Tetanus Vaccination: Yes Review of Systems - Review of Systems Notes: Constitutional: Negative for fever. HENT: Negative for sore throat. Eyes: Negative for visual changes. Cardiovascular: Negative for chest pain. Respiratory: Negative for shortness of breath. Gastrointestinal: As per HPI. Genitourinary: Negative for dysuria. Musculoskeletal: Negative for back pain. Skin: Negative for rash. Neurological: Negative for headaches, weakness or numbness. 10 point ROS negative except as marked above and in HPI. Physical Exam - Vital signs Vitals: Temp Pulse Resp BP Pulse Ox 97.8 F 97 16 93/51 L 100 03/29/20 12:45 03/29/20 12:45 03/29/20 12:45 03/29/20 12:45 03/29/20 12:45 Course - Re-evaluation Re-evalutation: 03/29/20 16:03 Is a lady who is 2 para 1 at about 24 weeks EGA who ate some food did not taste right this morning and subsequently vomited multiple times. EMS gave her fluids initially as well as some IV Zofran. Emesis was controlled by the time of my evaluation. I was able to feel movement in the uterine size was consistent with dates. I also checked FHTs by Doppler and these were normal about 140. Patient has no fever. Her abdomen is nontender. She has had a no contractions no vaginal bleeding or discharge. She is mildly anemic and has been previously in this with a hemoglobin at 10.7 g. She says she does not take iron or multivitamins because they make her sick on her stomach. I tested her urine here and she had some ketones present. Her chemistry profile was remarkable for K of 5.8 but I think this is probably hemolyzed because all the other values and chemistry studies were normal. She did not want to be stuck for a redraw. She subsequently felt much better and tolerated oral fluids and crackers without any difficulty. I recommended another liter of D5LR but patient did not want to stay for that. I will write her for some metoclopramide at home and advised her to increase oral fluids and follow-up with her [employer] provider within the next 3 to 5 days. She has been given instructions to return here in the event of new or worsening symptoms. Findings, clinical impression and plan of treatment have been discussed with patient/family. Understanding of current findings and recommendations has been acknowledged by them and there is agreement regarding disposition and follow-up. - Vital Signs Vital signs: Temp Pulse Resp BP Pulse Ox 97.8 F 97 16 93/51 L 100 03/29/20 12:45 03/29/20 12:45 03/29/20 12:45 03/29/20 12:45 03/29/20 12:45 - Laboratory Results Result Diagrams: 03/29/20 13:46 03/29/20 13:46 Laboratory Results Interpreted: 03/29/20 03/29/20 03/29/20 13:46 13:46 15:24 RBC 3.52 L Hgb 10.7 L Hct 31.2 L Lymph % (Auto) 5.9 L Seg Neutrophils % 87.6 H Sodium 133.0 L Potassium 5.8 H Chloride 108 H Carbon Dioxide 21 L Anion Gap 4 L Urine Ketones 20 H Leukocyte Esterase Rfl TRACE H Critical Laboratory Results Reviewed: Yes Attending or Supervising Physician who Reviewed Labs: HAO MEYER - Radiology Results Critical Radiology Results Reviewed: No Critical Results Discharge - Discharge Clinical Impression: Dehydration, IUP at 24 weeks EGA Vomiting Qualifiers: Vomiting type: unspecified Vomiting Intractability: non-intractable Nausea presence: with nausea Qualified Code(s): R11.2 - Nausea with vomiting, unspecified Condition: Stable Disposition: HOME, SELF-CARE Additional Instructions: Increase oral fluids Take prescribed medication as needed for nausea. Follow-up with your [facility] clinic within the next 3 to 5 days. Return here as needed for new or worsening symptoms: Pain that is worsening or unimproved Uncontrolled vomiting High fever or shaking chills Overall worsening Prescriptions: Metoclopramide HCl [Reglan 10 mg Tablet] 10 mg PO QID PRN 2 Days #8 tablet PRN Reason:
[2020-03-29 14:15] LABS: ABSOLUTE LYMPHOCYTES (AUTO) 0.5 10^3/uL (0.5-4.7); ABSOLUTE MONOCYTES (AUTO) 0.5 10^3/uL (0.1-1.4); ABSOLUTE NEUT (AUTO) 7.4 10^3/uL (1.7-8.2); BASOPHILS % (AUTO) 0.3 % (0-2); EOSINOPHILS % (AUTO) 0.2 % (0-6); HEMATOCRIT 31.2 % (36.0-47.0); HEMOGLOBIN 10.7 g/dL (12.0-15.5); LYMPHOCYTES % (AUTO) 5.9 % (13-45); MEAN CORPUSCULAR HEMOGLOBIN 30.3 pg (27.0-33.4); MEAN CORPUSCULAR HGB CONC 34.1 g/dL (32.0-36.0); MEAN CORPUSCULAR VOLUME 89 fl (80-97); PLATELET COUNT 166 10^3/uL (150-450); RED BLOOD COUNT 3.52 10^6/uL (3.72-5.28); RED CELL DISTRIBUTION WIDTH 12.9 % (11.5-14.0); SEGMENTED NEUTROPHILS % (AUTO) 87.6 % (42-78); TOTAL CELLS COUNTED % (AUTO) 100 %; WHITE BLOOD COUNT 8.4 10^3/uL (4.0-10.5)
[2020-03-29 14:29] LABS: BLOOD UREA NITROGEN 8 mg/dL (7-20); CALCIUM 8.5 mg/dL (8.4-10.2); GLUCOSE 80 mg/dL (75-110); POTASSIUM 5.8 mmol/L (3.6-5.0)
[2020-03-29 14:34] LABS: CARBON DIOXIDE 21 mmol/L (22-30); CHLORIDE 108 mmol/L (98-107)
[2020-03-29 14:35] LABS: ANION GAP 4 (5-19)
[2020-03-29] MEDS: DEXTROSE 5%-LACTATED RINGERS 1,000 ML IV ONE ×2 (15:28→15:39)
[2020-03-29 15:54] LABS: APPEARANCE,URINE CLEAR; BILIRUBIN,URINE NEGATIVE (NEGATIVE); COLOR,URINE STRAW; GLUCOSE, URINE NEGATIVE (NEGATIVE); KETONES,URINE 20 mg/dL (NEGATIVE); PROTEIN,URINE NEGATIVE (NEGATIVE); UROBILINOGEN,URINE NEGATIVE mg/dL (<2.0)
[2020-03-29 16:11] LABS: URINE AMPHETAMINES SCREEN NEGATIVE; URINE BARBITURATES SCREEN NEGATIVE; URINE BENZODIAZEPINES SCREEN NEGATIVE; URINE COCAINE SCREEN NEGATIVE; URINE MARIJUANA (THC) SCREEN NEGATIVE; URINE METHADONE SCREEN NEGATIVE; URINE PHENCYCLIDINE SCREEN NEGATIVE
[2020-03-29 16:28] VITALS: BP 91/58
== END 2020-03-29 16:29 | disposition home or self-care (01) ==
LOC: ER 12:32
DX: O21.9 Vomiting of pregnancy, unspecified (principal); O26.892 Other specified pregnancy related conditions, second trimester; E86.0 Dehydration; Z3A.24 24 weeks gestation of pregnancy; Z88.8 Allergy status to other drugs, medicaments and biological substances; I10 Essential (primary) hypertension
CPT/HCPCS: 36415; 80048; 80307; 81001; 85025; 99283; J7121